=== PATIENT | female | born 1935 | race Caucasian/White ===

== ENCOUNTER 2016-07-08 09:58 | Observation (INO) | payer MEDICARE ==
--- NOTE | 2016-07-01 14:48 | HP ---
PREOPERATIVE HISTORY AND PHYSICAL: DATE OF ADMISSION: 07/08/16 This patient is scheduled for Same-Day Surgery admission by Dr. Estrada on 07/08/16. DATE OF PREOPERATIVE HISTORY AND PHYSICAL EXAMINATION: 07/01/16. CHIEF COMPLAINT: Gallstones. HISTORY OF PRESENT ILLNESS: The patient is an 81-year-old female referred to Dr. Estrada by Dr. Davies in April 2016 for evaluation of abdominal pain related to gallstones. She had been seen at the [facility] for "stomach problems." She reports that starting in February 2016, she had episodic epigastric pain radiating to the right upper quadrant and occasionally to the right shoulder. She reports no specific provoking factors. Sometimes, she had experienced postprandial symptoms, but reports that she has also eaten pepperoni pizza and wings without problem. Sometimes the pain has awakened her at night. She has taken Tylenol and Tums at times with relief. She denies any associated fever, chills, nausea, vomiting, diarrhea, jaundice, or tea-colored urine or los-colored stools. She eliminated dairy from her diet and decreased her carbs intake and noticed left abdominal pain and she also lost 5 pounds. She underwent abdominal ultrasound on 03/25/16, which revealed cholelithiasis, no cholecystitis, no gallbladder wall thickening, and the common bile duct measurement was within normal limits. Amylase was mildly elevated and lipase was normal. She had an upper GI by Dr. Miller at [facility] in 2014 reportedly normal. She was scheduled to have laparoscopic cholecystectomy in April 2016 , but delayed it because she wanted to get a sleep study and the sleep study is negative for sleep apnea. She returned to our office for reassessment by Dr. Estrada and wishes to proceed with laparoscopic cholecystectomy. Dr. Estrada discussed the nature of the surgical procedure, the rationale for the procedure , the relevant risks, benefits, and alternatives, and today I reviewed the typical Same-Day Surgery as well as the expected postoperative care and recovery. The patient has had a chance to ask questions and stated that she understands the information and is satisfied with the answers given to her questions. She will sign surgical consent on the day of surgery. PAST MEDICAL HISTORY: Hypertension, left renal cancer status post partial robotic left nephrectomy in 2009, osteoporosis with closed fracture of the left distal radius, back pain, heartburn, and impaired balance. PAST SURGICAL HISTORY: Cataract extraction, partial left robotic nephrectomy in 2009, and surgery for closed fracture of left distal radius. MEDICATIONS: 1. Amlodipine 2.5 mg 2 tablets p.o. daily in the evening. 2. Calcium and vitamin D supplement daily. 3. Vitamin D3 daily. 4. Multivitamin daily. 5. Aflibercept, which is an injection into her left eye due again in July 2016. 6. Premarin 0.625 mg 1 applicator intravaginally 2 times a week. 7. Meclizine 12.5 mg p.o. q.12 hours p.r.n. ALLERGIES: BACTRIM has caused heartburn. FAMILY HISTORY: Negative for anesthesia complications, bleeding tendencies, or clotting disorders. SOCIAL HISTORY: She lives alone, but her son lives on same property. She has never been a smoker. She denies the use of alcohol or other substances. REVIEW OF SYSTEMS: She denies any constitutional symptoms; she denies any chest pain, pressure, or palpitations; she is treated for hypertension; she denies any history of deep vein thrombosis or pulmonary embolism. She denies any respiratory symptoms. She denies any previous anesthesia complications. She denies any additional gastrointestinal symptoms other than those described in history of present illness. She denies any genitourinary complaints or conditions. She is status post left partial nephrectomy. She has osteoporosis and a history of a closed fracture of the left distal radius. She denies any bleeding tendencies and has never received a blood transfusion. She does have bouts of anxiety and depression. PHYSICAL EXAMINATION GENERAL SURVEY: The patient is an 81-year-old female, well developed, well nourished, in no acute distress. VITAL SIGNS: Height 63 inches, weight 130 pounds, blood pressure 120/82, pulse 78 and regular, respiratory rate 16, temperature 97.5 tympanic, and body mass index of 23. HEENT: Benign. Sclerae anicteric. NECK: Supple. No cervical lymphadenopathy. No thyromegaly. No other masses. BACK: No CVA tenderness. LUNGS: Breath sounds bilaterally clear and equal. HEART: Regular rate and rhythm. No murmurs or rubs appreciated. ABDOMEN: Active bowel sounds, soft, and nondistended, nontender throughout. No obvious masses or organomegaly or ventral hernias. Negative Flores sign. EXTREMITIES: Warm without edema or skin ulcerations. NEUROLOGIC: Alert and oriented x3. Steady gait. SKIN: Warm, dry, intact, and anicteric. IMPRESSION: Symptomatic cholelithiasis. PLAN/RECOMMENDATIONS: Same-Day Surgery admission to Dr. Estrada service on 07/08/16, for laparoscopic cholecystectomy. MEDARDO JEFFERY NP CC: Lazarus Estrada MD at [facility]; Arnie Davies MD* [id number]/[facility] #: [id number] [facility]
[~2016-07-08 09:58] MED LIST: Buffered Lidocaine 1% SYR 3ML* 3 ML/SYR SYRINGE INTRADERM ONE; Dexamethasone IV* 4 MG/ML 1 ML (4 MG) IV SLOW PU ONE; Famotidine IV* 10 MG/ML 2 ML (20 mg) IV ONE
[2016-07-08] MEDS ORDERED: Dexamethasone IV* 4 MG/ML 1 ML (4 MG) ONE (10:17)
[2016-07-08] MEDS ORDERED: Famotidine IV* 10 MG/ML 2 ML (20 mg) ONE (10:17)
[2016-07-08] MEDS ORDERED: ceFAZolin 2 GM PREMIX (*) 2 GM/50 ML BAG IVPB ONE (10:17)
[2016-07-08] MEDS ORDERED: Bupivacaine 0.5% W/EPI SDV* 30 ML VIAL ONE (11:14)
[2016-07-08] MEDS ORDERED: Propofol* 10 MG/ML 20 ML BTL IV PUSH ONE (11:15)
[2016-07-08] MEDS ORDERED: Rocuronium* 10 MG/ML VIAL ONE (11:15)
[2016-07-08] MEDS ORDERED: Lidocaine 2% PF * 5 ML VIAL ONE (11:15)
[2016-07-08] MEDS ORDERED: fentaNYL* 50 MCG/ML 2 ML VIAL (100 MCG VIAL) ONE ×2 (11:15→11:41)
[2016-07-08] MEDS ORDERED: Phenylephrine IV* 40 MCG/ML 10 ML SYRINGE ONE (11:46)
[2016-07-08] MEDS ORDERED: Ondansetron INJ* 2 MG/ML VIAL ONE (11:50)
[2016-07-08] MEDS ORDERED: EPHEDrine (Pressors)* 50 MG/ML VIAL ONE (11:53)
[2016-07-08] MEDS ORDERED: HYDROcodone/ACETAMIN 5-325 MG* 1 TAB PO PRN ×3 (11:57→12:28)
[2016-07-08] MEDS ORDERED: PROCHLORPERAZINE INJ 5 MG/ML 2 ML VIAL IV PRN (11:57)
[2016-07-08] MEDS ORDERED: fentaNYL* 50 MCG/ML 2 ML VIAL (100 MCG VIAL) IV PRN (11:57)
[2016-07-08] MEDS ORDERED: Neostigmine Methylsulfate* 2 MG/2 ML SYRINGE ONE (12:05)
[2016-07-08] MEDS ORDERED: Glycopyrrolate IV* 0.2 MG/ML 1 ML VIAL ONE (12:05)
[2016-07-08] MEDS ORDERED: Metoprolol Tartrate IV* 1 MG/ML 5 ML VIAL ONE (12:09)
[2016-07-08] MEDS ORDERED: PROCHLORPERAZINE INJ 5 MG/ML 2 ML VIAL ONE (15:18)
[2016-07-08] MEDS ORDERED: HYDROcodone/ACETAMIN 5-325 MG* 1 TAB ONE (17:26)
[2016-07-08] MEDS ORDERED: Acetaminophen TAB* 325 MG PO PRN ×2 (18:19→23:50)
[2016-07-08] MEDS ORDERED: Ibuprofen TAB* 400 MG PO PRN (18:19)
[2016-07-08] MEDS ORDERED: Ondansetron INJ* 2 MG/ML VIAL IV PRN (18:20)
[2016-07-08] MEDS ORDERED: amLODIPine TAB* 5 MG PO SCH (19:30)
[2016-07-08] MEDS: PRESERVISION PO SCH (20:29)
[2016-07-08] MEDS: JOINT SOOTHER PO SCH (20:29)
[2016-07-09 08:05] VITALS: BP 144/55
[2016-07-09] MEDS ORDERED: Cholecalciferol TAB* 400 UNIT PO SCH (09:00)
[2016-07-09] MEDS ORDERED: Cholecalciferol TAB* 1000 UNITS PO SCH (09:00)
[2016-07-09] MEDS ORDERED: Calcium Carbonate CHEW TAB* 500 MG (TUMS) PO SCH (09:00)
[2016-07-09] MEDS: JOINT SOOTHER PO SCH (09:41)
[2016-07-09] MEDS: PRESERVISION PO SCH (09:41)
--- NOTE | 2016-07-09 10:18 | PN ---
Progress Note - Progress Note SOAP: DISCHARGE NOTE: Subjective:minimal discomfort,tolerating low fat diet,voiding large,walking, wants to go home Objective:awake and alert;lungs:clear bilat;heart:RRR,no m/r/g;Abd:softly bloated;+bs;all incisions intact with steristrips,mild ecchymosis periumbilical; no drainage or erythema;ext:nontender,no edema [] Assessment:doing well POD#1 s/p lap cholecystectomy [] Plan:Discharge home today,instructions reviewed,office postop visit next week []
[2016-07-09] MEDS ORDERED: OPTH BOTH EYES SCH (18:00)
[2016-07-09] MEDS ORDERED: MURO BOTH EYES SCH (18:00)
--- NOTE | 2016-07-09 23:02 | OP ---
DATE OF OPERATION: 07/08/16 - ROOM #333 DATE OF : 33 SURGEON: Lazarus Estrada MD WIRE INSPECTOR: Dr. Velásquez. ANESTHESIOLOGIST: Dr. Esparza. ANESTHESIA: General endotracheal. PRE-OP DIAGNOSIS: Symptomatic cholelithiasis. POST-OP DIAGNOSIS: Symptomatic cholelithiasis. OPERATIVE PROCEDURE: Laparoscopic cholecystectomy. ESTIMATED BLOOD LOSS: Minimal. IV FLUIDS: Crystalloids. SPECIMEN: Gallbladder. DRAINS: None. COMPLICATIONS: None. COUNTS: The instrument, needle, and sponge counts were correct. DESCRIPTION OF PROCEDURE: The patient was brought to the operating room, placed on the table supine. Sequential compression devices were placed on both lower extremities. General anesthesia was administered. Her abdomen was prepped and draped in the usual sterile fashion and time-out was performed. Local anesthetic was infiltrated into the skin and soft tissue prior to making each incision. Entry through the abdomen was through a transumbilical incision , accommodating a 5-mm optical trocar. After accessing the peritoneal cavity, carbon dioxide was insufflated to a pressure of 15 mmHg. Under direct visualization, a 12- mm trocar was placed in the subxiphoid position and two 5- mm trocars were placed in the right upper quadrant. The gallbladder was identified. It appeared to have chronic changes consistent with chronic cholecystitis. The gallbladder fundus was grasped and retracted superiorly and the infundibulum retracted laterally and inferiorly. The peritoneum investing the gallbladder was incised with cautery and sharp scissors dissection and this was performed over the infundibulum both medially and laterally and dissection then proceeded to identify the infundibular cystic duct junction. In addition, the cystic artery was dissected out and after each structure was bluntly dissected out and critical view was obtained, the structures were doubly clipped and divided. Gallbladder was freed from its attachments to the liver using the hook electrocautery and after freeing the gallbladder, it was placed in an endoscopic retrieval bag and retrieved through the subxiphoid port site. There were numerous stones noted. The area of dissection was copiously lavaged until clear. Clips were noted to be intact and hemostasis was assured. The ports were removed under direct visualization, carbon dioxide was released. The subxiphoid port site was closed with 0 Polysorb in an interrupted fashion to approximate the muscle and fascia. The skin incisions were closed with 4-0 Monocryl in subcuticular fashion. Steri- Strips were applied. The patient tolerated the procedure well, was extubated, and transferred to recovery room in stable condition. CC: Dr. Arnie Davies* [id number]/[facility] #: [id number] MTDD
--- NOTE | 2016-07-10 04:42 | DS ---
DISCHARGE SUMMARY: DATE OF ADMISSION: 07/08/16 DATE OF DISCHARGE: 07/09/16 ATTENDING SURGEON: Lazarus Estrada MD HOSPITAL COURSE: Please refer to admission history and physical for admission details. The patient was taken to the operating room on 07/08/16 and underwent laparoscopic cholecystectomy. She has had an uneventful postoperative course and as of the morning of discharge, was eating a low fat diet, denied any nausea or vomiting, was up walking with assistance, voiding large amount of urine and had minimal postoperative discomfort well controlled. PHYSICAL EXAMINATION: Vital Signs: Temp 97.4, blood pressure 144/50, pulse 60 and regular, respiratory rate 18, O2 saturation on room air 96%. General: Well appearing, and in no acute distress, sitting up at the edge of the bed. Lungs: Breath sounds bilaterally clear and equal. No rales or wheezes. Heart: Regular rate and rhythm. No murmur, rub, or gallops. Abdomen: Active bowel sounds, softly bloated. Laparoscopic incision sites intact with Steri-Strips. No surrounding erythema or drainage, mild ecchymosis in the periumbilical region. Extremities: Warm, nontender, and without edema. IMPRESSION: Postop day 1, status post laparoscopic cholecystectomy, doing very well. PLAN: Discharge home today. Discharge instructions were reviewed. She will follow the prescribed low fat diet and she has a followup appointment in our office on 07/16/16. MEDARDO JEFFERY NP CC: Dr. E[facility] * [id number]/[facility] #: [id number] [facility]ALTHDonald
[2016-07-10] MEDS ORDERED: Conjugated Estrogens VAG CM* 42.5 gm TUBE VAGINAL SCH (19:30)
== END 2016-07-09 11:05 | disposition home or self-care (01) ==
LOC: OR 09:58 → SSU 17:53
PROVIDERS: ADMIT Surgery; ATTEND Surgery
PROC: 0FT44ZZ Resection of Gallbladder, Percutaneous Endoscopic Approach (ICD-10-PCS; principal; 2016-07-08 11:30)
DX: K80.10 Calculus of gallbladder with chronic cholecystitis without obstruction (principal); I10 Essential (primary) hypertension; Z79.899 Other long term (current) drug therapy
CPT/HCPCS: 88304; A9270-GY; G0378; J0690; J0780; J1100; J2405; J2704; J3010; J3490

== ENCOUNTER 2017-04-09 16:30 | Observation (INO) | payer MEDICARE ==
[2017-04-09] MEDS ORDERED: Aspirin Low Dose CHEW TAB* 81 MG PO ONE (17:00)
[2017-04-09 17:46] LABS: Hematocrit 39 % (35-47); Hemoglobin 12.9 g/dl (12.0-16.0); Mean Corpuscular HGB Conc 33 g/dl (31-36); Mean Corpuscular Hemoglobin 31 pg (27-31); Mean Corpuscular Volume 93 fL (80-97); Mean Platelet Volume 9 um3 (7.4-10.4); Red Blood Count 4.23 10^6/ul (4.0-5.4); Red Cell Distribution Width 13 % (10.5-15)
[2017-04-09 18:03] LABS: Albumin 3.8 g/dL (3.2-5.2); BUN/Creatinine Ratio 16.5 (8-20); Calcium 8.8 mg/dL (8.6-10.3); EGFR African American 76.1 (>60); EGFR Non-African American 59.2 (>60); Globulin 2.5 g/dL (2-4); Total Bilirubin 0.5 mg/dL (0.2-1.0); Total Protein 6.3 g/dL (6.4-8.9)
--- NOTE | 2017-04-09 18:03 | RAD ---
Indication: Feels tired and weak. Chest discomfort for a week. Cardiovascular history. Hypertension. Comparison: Abdomen CT of the same date Technique: Upright AP 1720 hours Report: Costochondral calcifications noted at the RIGHT lower lung zone without concern. Clear lungs and pleural spaces. Negative for pneumothorax. The heart, pulmonary vasculature, and mediastinal contours are unremarkable. Negative for free air beneath the diaphragm. IMPRESSION: No evidence for acute intrathoracic disease.
[2017-04-09 18:43] LABS: TSH (Thyroid Stimulating Horm) 1.33 mcIU/mL (0.34-5.60)
--- NOTE | 2017-04-09 20:53 | ED ---
Mercedes Krueger SooYoung, scribed for Andrade Williamson MD on 04/09/17 at 1658 . Complex/Multi-Sys Presentation - HPI Summary HPI Summary: An 81 y/o F presents to ED referred from Nursery with c/o CP first noticed last night at 0100, and still present this AM at 0630. Pt states last night, she woke up from sleep with "heart burn" and bilat arm pain. She took some TUMS and went back to sleep. Pt sleeps sitting up. When she woke up, her sx were still present. She is concerned she may be having heart issues. Associated sx: diaphoretic in hands and feet, fatigue. Denies SOB, dizziness. PMHx: HTN, renal CA. Cholecystectomy in June. Non-smoker, no ETOH. - History Of Current Complaint Chief Complaint: EDAbdPain Time Seen by Provider: 04/09/17 16:47 Hx Obtained From: Patient, Family/Case Reviewer - Sister Onset/Duration: Still Present Severity Currently: Moderate Severity Initially: Moderate Associated Signs And Symptoms: Positive: Chest Pain, Diaphoresis, Other - pos: bilat arm pain; fatigue. Negative: Dizziness, SOB - Allergies/Home Medications Allergies/Adverse Reactions: Allergies Allergy/AdvReac Type Severity Reaction Status Date / Time Sulfamethoxazole AdvReac Heartburn Verified 07/08/16 10:20 w/Trimethoprim [From Bactrim] Home Medications: Home Medications Meclizine TAB* [Antivert 12.5 TAB*] 1 tab PO BID PRN 04/09/17 [History Confirmed 04/09/17] Omeprazole [Prilosec] 20 mg PO DAILY 04/09/17 [History Confirmed 04/09/17] metroNIDAZOLE TAB* [Flagyl 250 mg TAB*] 250 mg PO TID 04/09/17 [History Confirmed 04/09/17] PMH/Surg Hx/FS Hx/Imm Hx Previously Healthy: No Endocrine/Hematology History: Denies: Hx Diabetes Cardiovascular History: Reports: Hx Hypertension - ON MEDICATION FOR Denies: Hx Pacemaker/ICD GI History: Reports: Hx Gastroesophageal Reflux Disease, Hx Ulcer - 2014- PEPTIC ULCER PIN History: Denies: Hx Renal Disease Musculoskeletal History: Reports: Hx Arthritis - HANDS, Other Musculoskeletal History - OSTEOPOROSIS IN BACK Sensory History: Reports: Hx Cataracts, Hx Contacts or Glasses - GLASSES, Hx Hearing Aid - BOTH EARS Opthamlomology History: Reports: Hx Cataracts, Hx Contacts or Glasses - GLASSES Psychiatric History: Reports: Hx Anxiety - IN 2016, Hx Depression - IN 2016- RELATED TO IN FAMILY Denies: Hx Panic Disorder - Cancer History Cancer Type, 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 LEFT ELBOW. TUBAL LIGATION. 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 CHOLECYSTECTOMY 07/11 Hx Anesthesia Reactions: No Infectious Disease History: No Infectious Disease History: Denies: History Other Infectious Disease, Traveled Outside the [place] in Last 30 Days - Family History Known Family History: Positive: Cardiac Disease, Hypertension Family History: Brother: CVA - Social History Occupation: Retired Lives: Alone Alcohol Use: None Hx Substance Use: No Substance Use Type: Reports: None Hx Tobacco Use: No Smoking Status (MU): Never Smoked Tobacco Review of Systems Positive: Fatigue, Skin Diaphoresis Positive: Chest Pain Negative: Shortness Of Breath Musculoskeletal: Other - pos: bilat arm pain Neurological: Other - neg: dizziness All Other Systems Reviewed And Are Negative: Yes Physical Exam Triage Information Reviewed: Yes Vital Signs On Initial Exam: Initial Vitals Temp Pulse Resp BP Pulse Ox 97.0 F 64 20 145/73 99 04/09/17 16:36 04/09/17 16:36 04/09/17 16:36 04/09/17 16:36 04/09/17 16:36 Appearance: Positive: Well-Appearing, No Pain Distress Skin: Positive: Skin Color Reflects Adequate Perfusion Head/Face: Positive: Normal Head/Face Inspection Eyes: Positive: EOMI ENT: Positive: Normal ENT inspection, Pharynx normal Neck: Positive: Nontender Respiratory/Lung Sounds: Positive: Clear to Auscultation, Breath Sounds Present Cardiovascular: Positive: RRR. Negative: Murmur Abdomen Description: Positive: Nontender Neurological: Positive: Sensory/Motor Intact, Alert, Oriented to Person Place, Time, CN Intact II-III Psychiatric: Positive: Normal Diagnostics - Vital Signs Vital Signs Temp Pulse Resp BP Pulse Ox 04/09/17 16:36 97.0 F 64 20 145/73 99 - Laboratory Result Diagrams: 04/09/17 17:39 04/09/17 17:39 Lab Statement: Any lab studies that have been ordered have been reviewed, and results considered in the medical decision making process. - Radiology CXR Xray Interpretation: No Acute Changes - IMPRESSION: No acute intrathoracic disease. ED physician has reviewed this radiology report and agrees. Radiology Interpretation Completed By: Radiologist - EKG 1706 Cardiac Rate: Bradycardia EKG Rhythm: Sinus Bradycardia - 58bpm ST Segment: Normal EKG Interpretation: nml MS, QRS, QT. no STEMI. Re-Evaluation - Re-Evaluation 1 Re-Evaluation Time: 19:15 Change: Improved Comment: Discussing results with pt. Complex Multi-Symp Course/Dx Course Of Treatment: An 81 y/o F presents to ED referred from Nursery with c/o CP first noticed last night at 0100, and still present this AM at 0630. Pt states last night, she woke up from sleep with "heart burn" and bilat arm pain. She took some TUMS and went back to sleep. Pt sleeps sitting up. When she woke up, her sx were still present. She is concerned she may be having heart issues. Associated sx: diaphoretic in hands and feet, fatigue. Denies SOB, dizziness. PMHx: HTN, renal CA. Cholecystectomy in June. Non-smoker, no ETOH. CXR shows no acute finding. EKG is sinus felisa at 58bpm, no STEMI. - Diagnoses Provider Diagnoses: Chest pain, Hypertension - Physician Notifications Discussed Care Of Patient With: Johanna Benjamin - hospitalist Time Discussed With Above Provider: 19:48 Instructed by Provider To: Admit As Inpatient Discharge - Discharge Plan Condition: Stable Disposition: ADMITTED TO [facility] Referrals: Arnie Davies MD [Medical Doctor] - The documentation as recorded by the Mercedes blunt SooYoung accurately reflects the service I personally performed and the decisions made by , Andrade Williamson MD.
[2017-04-09] MEDS ORDERED: Acetaminophen TAB* 325 MG PO PRN (21:08)
[2017-04-09] MEDS ORDERED: Ondansetron INJ* 2 MG/ML VIAL IV PRN (21:08)
[2017-04-09] MEDS ORDERED: Al Hydrox/Mg Hydrox/Simet LIQ* 30 ML UDC PO ONE (21:08)
[2017-04-09] MEDS ORDERED: Lidocaine 2% VISCOUS* 15 ML UDC PO ONE (21:08)
[2017-04-09] MEDS ORDERED: Meclizine TAB* 12.5 MG PO PRN (21:10)
[2017-04-09] MEDS ORDERED: amLODIPine TAB* 5 MG PO SCH (22:00)
[2017-04-09] MEDS: Heparin VIAL(*) 5000 UNITS/ML VIAL (FIVE THOUSAND) SUBCUT SCH (23:04)
--- NOTE | 2017-04-10 01:55 | HP ---
CC: Dr. Adelina Fonseca. * HISTORY AND PHYSICAL: DATE OF ADMISSION: 04/09/17 PRIMARY CARE PROVIDER: Dr. Adelina Fonseca. ATTENDING PHYSICIAN WHILE IN THE HOSPITAL: Dr. Johanna Benjamin * (report dictated by Winston Olson NP). CHIEF COMPLAINT: 1. Epigastric pain. 2. Chest burning. HISTORY OF PRESENT ILLNESS: Ms. Becker is an 81-year-old female patient. She has a history of hypertension and renal cancer, status post nephrectomy; osteoporosis; GERD; and history of anxiety, who for several years has been having issues with abdominal discomfort. She has been having lower abdominal bloating, no pain. She has been following with Dr. Miller at [facility] for this. She has had endoscopies and workup for this, now recently following with Dr. Fonseca. She says that the characteristics of the pain changed last night and this was concerning to her. She noticed that she fell asleep on the couch, woke up at 1 in the morning, was having some epigastric burning and discomfort which she has had in the past. She took 3 Tums, was able to go back to bed. She walked around. The discomfort subsided to the point where she could sleep. She went to bed. She unfortunately woke up at 5:30 again having the similar discomfort. She was concerned because it was not going away. It was going into her arms. She was having some stabbing pain in her chest which was new and still having the burning discomfort which was coming and going throughout the day with no correlation with meals. She did try taking her omeprazole and GI med, but this did not help her. She called Dr. Miller's office and she was referred to the ER. She denies having any pain with exertion. No pressure in her chest. No shortness of breath. No recent fevers, chills, or cough. No recent trips or travel. No leg pain or leg discomfort. She does state that she fell asleep upright last night. She said that she fell asleep at least an hour to 2 hours after eating her last meal and she has been sticking to her gluten free and lactose free diet. According to the patient, she does state that she recently was started on some medication for anxiety, which did not agree with her and it was Lexapro and she did stop taking this under the care of Dr. Fonseca. She was concerned though because of the chest discomfort, she came in and was evaluated by the ER physician here and there was a concern for the chest pain and we were asked to evaluate for admission. PAST MEDICAL HISTORY: Significant for: 1. Hypertension. 2. Renal cell carcinoma. 3. Osteoporosis. 4. GERD. 5. Anxiety. PAST SURGICAL HISTORY: 1. She has had a left nephrectomy. 2. Laparoscopic cholecystectomy. MEDICATIONS: Home meds according to the list that she provided to us includes: 1. Omeprazole 20 mg daily. 2. Antivert 1 tablet p.o. b.i.d. as needed. 3. Flagyl 250 mg p.o. t.i.d. for 3 days. She finished this yesterday. 4. Premarin vaginal cream 1 application topically as instructed. 5. Calcium with vitamin D 1 tablet daily. 6. Aflibercept 1 injection left eye every 60 days. 7. Tylenol 2 tablets every 6 hours as needed. 8. Vitamin D3 1000 units p.o. daily. 9. Sodium chloride 5% ophthalmic 1 application to both eyes q.p.m. 10. Multivitamin 1 tablet p.o. b.i.d. 11. Amlodipine 5 mg p.o. at bedtime. ALLERGIES TO MEDICATIONS: Include BACTRIM. FAMILY HISTORY: Mother had a history of AL at age 81. Father, she thinks, had a history of coronary artery disease as well. SOCIAL HISTORY: She does not smoke, does not drink. Surrogate decision maker is her sister. REVIEW OF SYSTEMS: There is no documented fevers. She denied having any significant weight change. There was no double vision. No ear discharge. No rhinorrhea, no sore throat, no thyroid enlargement. She denies chest pain currently, but did have some from her HPI. There was no dyspnea or exertion, no orthopnea, no nocturnal dyspnea. There was no abdominal pain. She did admit to having bloating. She did admit to having epigastric discomfort and burning. No nausea or vomiting. No dysuria, no frequency, no seizure, no loss of consciousness, no pruritus, and no skin ulcerations. Review of 14 systems completed, all others negative. PHYSICAL EXAMINATION GENERAL: Ms. Becker is an 81-year-old female patient. She is sitting in the ER stretcher. She does not appear to be in any acute distress. VITAL SIGNS: Blood pressure 150/95 with a pulse of 65, respirations 18, O2 sat 96%, temperature 97.0. HEENT: Head atraumatic and normocephalic. Eyes: EOMs are intact. Sclerae anicteric and not pale. NECK: Supple. Throat, oral mucosa appears to be moist, no oropharyngeal erythema. LUNGS: Clear to auscultation bilaterally. No wheezes, rales, or rhonchi. HEART: Sounds S1 and S2. Regular, rate, and rhythm. No murmurs, rubs, or gallops. ABDOMEN: Soft, flat, and nontender. Bowel sounds are present. EXTREMITIES: Pulses were 2+ throughout. Moving all 4 extremities with 5/5 strength. No peripheral edema. NEUROLOGIC: The patient is awake, alert, and oriented x3. Tongue midline, electrical prospecting operator are equal. No gross focal deficits. SKIN: Grossly intact. DIAGNOSTIC STUDIES/LAB DATA: Reveals a WBC of 5.0, RBC of 4.23, hemoglobin 12.9, hematocrit 39, platelet count of 189. The D-dimer was less than 200. Sodium 137, potassium 4, chloride 107, bicarb 25, BUN 15, creatinine 0.91, glucose 89, lactic 0.6, calcium 8.8. Total bili 0.5, AST 29, ALT 17, alk phos 66. Troponin 0.0, repeat troponin was 0. BNP is 73. TSH normal. Albumin 3.8. She did have an EKG obtained today. Unfortunately, I do not have a previous for comparison, but it did reveal normal sinus rhythm, no ST elevations or T- wave inversions with a rate of 58. Chest x-ray obtained today. Impression: No evidence for acute intrathoracic disease. Old medical records reviewed. ASSESSMENT AND PLAN: Ms. Becker is an 81-year-old female patient coming into the ER today with complaints of atypical chest pain. There was concern this could be acute coronary syndrome. We were asked to evaluate for admission. She will be admitted under observation status for: 1. Chest pain. This is probably GI related. She certainly does have a history of GERD and has had several issues with GI discomfort in the past. I am going to go ahead and give her GI cocktail. She does have a history of hypertension. She does have a family history, although in her mom having a heart attack at 81. No early heart disease and she has never been a smoker. I do think that I will get 1 more troponin. We will do a stress test to make sure this is not cardiac related, though I suspect less likely. We will place her on telemetry and will follow her closely. If the stress test is negative, she could be discharged with follow up with Dr. Miller. 2. Hypertension. Her blood pressures here having been well controlled, it certainly may be a contributing factor. They have been in the 170s to 190s at times. She did not take her medications today, so I am going to go ahead and give her amlodipine. We will follow. 3. Osteoporosis. Continue meds as prescribed. 4. Renal cell cancer. Follow up with primary. 5. Gastroesophageal reflux disease. Continue PPI therapy. 6. Anxiety. Continue supportive care. 7. DVT prophylaxis: She is a high risk, placed on heparin subcu. 8. Code status: Full code. 9. Fluids, electrolytes, and nutrition: She can have a heart-healthy diet. TIME SPENT: On this admission 60 minutes, greater than half the time was spent [id number] with the patient obtaining my history and physical, other half the time was spent going over the plan of care with the patient, implementing the plan of care. I discussed the plan of care with my attending Dr. Benjamin, she is in agreement. WINSTON OLSON NP [id number]/CPS #: [id number] MTDDonald
[2017-04-10] MEDS: Heparin VIAL(*) 5000 UNITS/ML VIAL (FIVE THOUSAND) SUBCUT SCH ×2 (05:28→13:49)
[2017-04-10 06:10] LABS: HDL Cholesterol 57.2 mg/dL
[2017-04-10] MEDS ORDERED: Omeprazole CAP* 20 MG PO SCH (07:30)
[2017-04-10 08:10] VITALS: BP 163/65
[2017-04-10] MEDS ORDERED: Aspirin Low Dose CHEW TAB* 81 MG PO SCH (09:00)
[2017-04-10] MEDS ORDERED: Regadenoson* 0.4 MG/5 ML SYRINGE ONE (10:19)
[2017-04-10] MEDS ORDERED: Aminophylline IV* 25 MG/ML 10 ML VIAL ONE (10:19)
[2017-04-10] MEDS ORDERED: Acetaminophen TAB* 325 MG ONE (10:40)
[2017-04-10] MEDS ORDERED: Ondansetron INJ* 2 MG/ML VIAL ONE (10:40)
--- NOTE | 2017-04-10 13:10 | RAD ---
Indication: Chest pain. Myocardial perfusion scan was performed utilizing 1 day protocol. Rest myocardial perfusion was performed after intravenous injection of 10.8 mCi of technetium 99 and tetrofosmin. Pharmacological stress was given and 25.9 mCi technetium 99m tetrofosmin was injected. There is homogeneous distribution of the radiotracer throughout the left ventricle. There is no evidence of any fixed or reversible perfusion defect. The ejection fraction at stress is 93%. Evaluation of wall motion demonstrates no focal wall motion abnormality. IMPRESSION: No evidence of fixed or reversible perfusion defect. Ejection fraction is 93%. ASSESSMENT: Low risk Based on imaging criteria from ACC/AHA 2002 Guideline Update for the Management of Patients With Chronic Stable Angina Table 23. Noninvasive Risk Stratification. Reference.
--- NOTE | 2017-04-11 05:28 | DS ---
CC: Dr. Adelina Fonseca; Dr. Miller at [facility], [place] DISCHARGE SUMMARY: DATE OF ADMISSION: DATE OF DISCHARGE: 04/10/17 HISTORY: This 81-year-old woman presented with epigastric pain, some burning in her chest. I believ e she called her general accounting manager office and was referred to the emergency room. The patient was admitted to the telemetry unit. She said since she had eaten very little since she g ot here, her symptoms all went away. Her troponin was measured 3 times, all of which were within nor mal limits. Her EKG showed normal sinus rhythm with no significant ST-T wave abnormalities. No Q-wa ves. Nuclear stress test showed no fixed or reversible perfusion defects. The ejection fraction was estim ated as 93%. The patient's clinical picture is most compatible with her known GERD. She has an appointment to doroteo lee with her general accounting manager, Dr. Miller, in early April. I note she has had endoscopy for this . She was advised to call Dr. Adelina Fonseca to have an appointment within a week as followup. I note the patient is a rather anxious woman, but at least will be reassured by explanation of her sy mptoms. DISCHARGE DIAGNOSES: 1. Atypical chest pain. 2. Gastroesophageal reflux disease. 3. Hypertension. 4. Osteoporosis. 5. Anxiety. 6. History of renal cell carcinoma with left nephrectomy. DISCHARGE MEDICATIONS: 1. Amlodipine 5 mg at h.s. 2. Ophthalmic ointment both eyes h.s. 3. PreserVision 1 tab b.i.d. 4. Conjugated estrogen cream applied vaginally as prescribed. 5. Calcium with vitamin D 1 tablet daily. 6. Aflibercept injection left eye every 60 days. 7. Acetaminophen 2 tabs every 6 hours p.r.n. 8. Vitamin D3 a 1000 units daily. 9. Metronidazole 250 mg as prescribed. 10. Omeprazole 20 mg daily. 11. Meclizine 12.5 mg b.i.d. p.r.n. [id number]/[facility] #: [id number]
== END 2017-04-10 15:00 | disposition home or self-care (01) ==
LOC: ED 16:30 → MEDTELE 21:06
PROVIDERS: ADMIT Hospitalist; ATTEND Internal Medicine
DX: R07.89 Other chest pain (principal); K21.9 Gastro-esophageal reflux disease without esophagitis; I10 Essential (primary) hypertension; F41.9 Anxiety disorder, unspecified; R00.1 Bradycardia, unspecified; Z85.528 Personal history of other malignant neoplasm of kidney; M81.0 Age-related osteoporosis without current pathological fracture; Z79.899 Other long term (current) drug therapy
CPT/HCPCS: 36415; 71010; 78452; 80053; 80061; 83036; 83605; 83690; 83880; 84443; 84484; 85025; 85379; 85610; 85730; 93005; 93017; 99283; A9270-GY; A9502; G0378; J0280; J1644; J2405; J2785

== ENCOUNTER 2018-03-04 22:18 | Emergency (ER) | payer MEDICARE ==
--- OUTSIDE RECORDS SUMMARY | 2018-03-04 23:15 | XMS REPORT ---
:1935 External Reference #:[id number] Author Organization [facility] Address [address] [place] [address] Phone [phone] Care Team Providers Name Role Phone Adelina Fonseca M.D. Care Team Information Manager Performance Unavailable Adelina Fonseca M.D. Primary Care Physician Unavailable Payers Type Date Identification Numbers Payment Provider Subscriber Commercial Effective: Policy Number: Medicare Blue Ppo Hannah Carrillo 2016 [id number] Group Number: [id number] [address] [id number] PayID: [id number] [place] [address] Problems Date Description Provider Status Onset: 04/27/2017 History of malignant neoplasm of kidney Adelina Fonseca M.D. Active Onset: 04/27/2017 Essential hypertension Adelina Fonseca M.D. Active Onset: 04/27/2017 Generalized anxiety disorder Adelina Fonseca M.D. Active Onset: 04/27/2017 Gastroesophageal reflux disease Adelina Fonseca M.D. 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 0000 s bid as Zion needed for MD patty dizziness Premarin / Active Cream 0.625mg/GM apply 0.5 Unknown 0000 g topically to introitus daily x 2 weeks, then two times weekly ongoing Preservision / Active Capsules 1 cap by Unknown Areds 0000 mouth twice daily Sodium Chloride / Active Solution 5% Unknown 0000 Amlodipine / Active Tablets 2.5mg 1 by mouth Unknown Besylate 0000 every day Calcium 600 / Active Tablets 600mg 1 by mouth Unknown 0000 every day Aflibercept / Active 2mg Place Unknown 0000 Within The Eye Allergy / Active Tablets tab as Unknown 0000 needed Ranitidine HCL 12/08/ Hx Tablets 150mg 60tab 1 tab by K21.9 Poonam 2017 - s mouth Manuela 02/15/ twice a Giron, 2017 day BARREL LEVELER Nitrofurantoin 09/04/ Hx Capsules 100mg 10cap 1 by mouth N39.0 Poonam Monohyd Macro 2017 - s twice a Manuela 09/23/ day x 5 Giron, 2017 days BARREL LEVELER Vitamin D-3 03/23/ Hx Capsules 1000Unit 180ca 1 by mouth Adelina 2017 - ps every day Bellmore, 10/29/ M.D. 2017 Escitalopram 03/23/ Hx Tablets 5mg 30tab take one F41.1 Adelina Oxalate 2016 - tablet by Bellmore, 04/27/ mouth at M.D. 2016 bedtime Omeprazole / Hx Capsules 20mg 1 by mouth Unknown 0000 - DR every day 2017 Vital Signs Date Vital Result Comment 02/15/2018 BP Systolic 178 mmHg BP Diastolic 90 mmHg Heart Rate 70 /min Body Temperature 97.2 F Respiratory Rate 22 /min Weight 135.50 lb 12/08/2017 BP Systolic 142 mmHg BP Diastolic 82 mmHg Heart Rate 60 /min Body Temperature 98.3 F Height 62 inches 5'2" Weight 135.00 lb BMI (Body Mass Index) 24.7 kg/m2 10/29/2017 BP Systolic 138 mmHg BP Diastolic 78 mmHg Heart Rate 74 /min Body Temperature 97.8 F Respiratory Rate 16 /min Height 62 inches 5'2" Weight 138.00 lb BMI (Body Mass Index) 25.2 kg/m2 10/17/2017 BP Systolic 110 mmHg BP Diastolic 62 mmHg Heart Rate 76 /min Body Temperature 97.9 F Respiratory Rate 16 /min Height 62 inches 5'2" Weight 140.38 lb BMI (Body Mass Index) 25.7 kg/m2 09/30/2017 BP Systolic 168 mmHg BP Diastolic 80 mmHg Heart Rate 72 /min Body Temperature 97.9 F Respiratory Rate 16 /min Height 62 inches 5'2" Weight 140.00 lb BMI (Body Mass Index) 25.6 kg/m2 09/04/2017 BP Systolic 138 mmHg BP Diastolic 90 mmHg Heart Rate 76 /min Body Temperature 98.0 F Respiratory Rate 17 /min Height 62 inches 5'2" Weight 139.38 lb BMI (Body Mass Index) 25.5 kg/m2 04/27/2017 BP Systolic 128 mmHg BP Diastolic 70 mmHg Heart Rate 78 /min Body Temperature 98.1 F Height 62 inches 5'2" Weight 135.50 lb BMI (Body Mass Index) 24.8 kg/m2 03/27/2017 BP Systolic 142 mmHg BP Diastolic 84 mmHg Heart Rate 72 /min Body Temperature 97.3 F Height 62 inches 5'2" Weight 139.12 lb BMI (Body Mass Index) 25.4 kg/m2 03/23/2017 BP Systolic 120 mmHg BP Diastolic 80 mmHg Heart Rate 64 /min Body Temperature 97.9 F Respiratory Rate 18 /min Height 62 inches 5'2" Weight 139.00 lb BMI (Body Mass Index) 25.4 kg/m2 Results Test Date Test Result H/L Range Note Laboratory test finding 02/15/2018 TSH <pending> 0.5-5.0 Ua - Micro (Fma) 09/16/2017 Appearance clear Color yellow Glucose, Urine (Fma/CMC/CTX) neg Bilirubin neg Ketones neg SP Grav 1.010 Blood neg PH 5.5 Protein neg Urobil 0.2 Nitrite neg Leukocytes (Fma/CMC/Centrex) trace Hyaline - /Lpf Granular - /Lpf WBC (Fma,Centrex) 1-2 RBC - Mucus - /Lpf Epith rare /Lpf Bacteria rare /Hpf Amorphous - /Lpf Crystals, Fluid (Fma/CMC/CTX) - Z#Comments - Urine Culture And Sensitivities 09/16/2017 Urine Culture SEE RESULT BELOW 1 Urine Culture And Sensitivities 09/04/2017 Urine Culture SEE RESULT BELOW 2 Ua - Micro (Fma) 09/04/2017 Appearance clear Color yellow Glucose, Urine (Fma/CMC/CTX) neg Bilirubin neg Ketones neg SP Grav 1.015 Blood neg PH 5.5 Protein neg Urobil 0.2 Nitrite neg Leukocytes (Fma/CMC/Centrex) mod Hyaline - /Lpf Granular - /Lpf WBC (Fma,Centrex) 20-25 RBC 3-5 Mucus - /Lpf Epith rare /Lpf Bacteria 2+ /Hpf Amorphous - /Lpf Crystals, Fluid (Fma/CMC/CTX) - Z#Comments - Laboratory test finding 04/09/2017 Troponin I 0.00 ng/mL <0.04 1 SEE RESULT BELOW Name: HANNAH CARRILLO : [address]: Poonam Giron NP Acct: [id number] Unit: [id number] AGE: 82 Location: [facility] Re09/16/17 SEX: F Status: REG REF SPEC: [id number] ALCIDES: 09/16/17-[address] [facility] DR: Poonam Giron NP REQ: [id number] RECD: 09/16/17 STATUS: COMP _ SOURCE: URINE SPDESC: ORDERED: Urine Culture COMMENTS: [id number] 1urine bernard top tube Procedure Result Reported Site Urine Culture Final 09/18/17- 09 ML No Growth (<1,000 CFU/mL) * ML - Main Lab . END OF REPORT DEPARTMENT OF PATHOLOGY, [address] [place] [address] Joni Joshi M.D. Director [facility] # [id number] 2 SEE RESULT BELOW Name: HANNAH CARRILLO : [address]: Poonam Giron NP Acct: [id number] Unit: [id number] AGE: 82 Location: [facility] Re09/04/17 SEX: F Status: REG REF SPEC: [id number] ALCIDES: 09/04/17-[address] [facility] [address]: Poonam Giron NP REQ: [id number] RECD: 09/04/17 STATUS: COMP _ SOURCE: URINE SPDESC: ORDERED: Urine Culture COMMENTS: 1urine vacutainer [id number] Urine Source: Random Procedure Result Reported Site Urine Culture Final 09/06/17- 0815 ML No growth of clinically significant organisms * ML - Main Lab . END OF REPORT DEPARTMENT OF PATHOLOGY, [address] [place] [address] Joni Joshi M.D. Director [facility] # [id number] Procedures Date CPT Code Description Status 01/13/2018 Colonoscopy Completed 12/08/2017 07150 Electrocardiogram Complete Completed Encounters Type Date Location Provider CPT E/M Dx Office Visit 12/08/2017 10:00a [facility] Adelina Fonseca M.D. 99076 K21.9 M54.9 I10 Office Visit 10/29/2017 10:10a [facility] Office Adelina Fonseca M.D. 67736 M54.5 H91.90 Z85.520 K21.9 Office Visit 10/17/2017 9:30a [place] [address] M54.9 Z85.520 Office Visit 09/30/2017 7:40p [place] [address] Z71.1 Office Visit 09/04/2017 1:30p [place] [address] N39.0 Office Visit 04/27/2017 11:40a [facility] Office Adelina Fonseca M.D. 12456 K21.9 F41.1 I10 Z85.528 Office Visit 03/27/2017 4:30p [place] [address] R19.5 R10.13 Office Visit 03/23/2017 6:50p Main Office Adelina Fonseca M.D. 44583 F41.1 Plan of Care Future Appointment(s):02/22/2018 1:30 pm - Adelina Fonseca M.D. at [facility] Msgjyl9803/15/2018 3:50 pm - Adelina Fonseca M.D. at [facility] Dhaagc0702/15/2018 - Meera Camacho, Francanp-CI10 Essential (primary) [id number] Generalized anxiety disorderAllComments:~B_~U_Medication Management~b_~u_ Patient Understands medications she's taking? Yes No Are there Barriers to Adherence? Yes No Has the patient been asked about herbal supplements and therapies, and OTC meds? Yes No ~B_~U_Care Plan~b_~u_1. Patient has been queried about patient's goals/preferences and functional/ lifestyle goals at relevant visits. If relevant, describe: na2. Treatment goals as explained to the patient: abovemoniter bp 3. Are there barriers to meeting treatment goals? Yes No If Yes, please describe:anxiety 4. Self-Management goals as described to the patient: Yes No home moniter your bp over the next week , perhaps about 3-4 readings, return for recheck with your cuffwe may need to go back to 5mg of amloidipine a day has cpe next monthf/u as noted and pending labs
[2018-03-05] MEDS ORDERED: cloNIDine TAB* 0.1 MG PO ONE (00:11)
--- NOTE | 2018-03-05 00:25 | ED ---
Hypertension - HPI Summary HPI Summary: This patient is a 82 year old F presenting to [facility] with a chief complaint of high blood pressure since 2 weeks ago. The patient notes that her blood pressure became even more elevated tonight so she decided to come to the ED. The patient rates the pain 3/10 in severity. Symptoms aggravated by nothing. Symptoms alleviated by nothing. Patient reports temporal MANCILLA since this afternoon which she notes is uncommon for her. Patient also notes general malaise. Patient denies chest pain or difficulty breathing. Patient takes amlodipine and she took x2 at 23:30. - History of Current Complaint Chief Complaint: EDGeneral Stated Complaint: ELEV BP Time Seen by Provider: 03/05/18 00:01 Hx Obtained From: Patient Onset/Duration: Started Weeks Ago - 2 weeks, Atraumatic, Still Present, Worse Since - 1 day ago Timing: Constant Aggravating Factor(s): Nothing Alleviating Factor(s): Nothing Associated Signs & Symptoms: Headaches Current Medications: Other - amlodipine - Allergies/Home Medications Allergies/Adverse Reactions: Allergies Allergy/AdvReac Type Severity Reaction Status Date / Time MS Sulfamethoxazole AdvReac Heartburn Verified 07/08/16 10:20 w/Trimethoprim [From Bactrim] PMH/Surg Hx/FS Hx/Imm Hx Endocrine/Hematology History: Denies: Hx Diabetes Cardiovascular History: Reports: Hx Hypertension - Medication Denies: Hx Pacemaker/ICD GI History: Reports: Hx Gastroesophageal Reflux Disease, Hx Ulcer - 2013- PEPTIC ULCER PIN History: Denies: Hx Renal Disease Musculoskeletal History: Reports: Hx Arthritis - HANDS, Other Musculoskeletal History - OSTEOPOROSIS IN BACK Sensory History: Reports: Hx Cataracts, Hx Contacts or Glasses, Hx Hearing Aid Opthamlomology History: Reports: Hx Cataracts, Hx Contacts or Glasses Psychiatric History: Reports: Hx Anxiety - IN 2015, Hx Depression - IN 2015- RELATED TO IN FAMILY Denies: Hx Panic Disorder - Cancer History Cancer Type, 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 LEFT ELBOW. TUBAL LIGATION. 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 CHOLECYSTECTOMY 07/11 Hx Anesthesia Reactions: No Infectious Disease History: No Infectious Disease History: Denies: History Other Infectious Disease, Traveled Outside the [place] in Last 30 Days - Family History Known Family History: Positive: Cardiac Disease, Hypertension Family History: Brother: CVA - Social History Alcohol Use: None Hx Substance Use: No Substance Use Type: Reports: None Hx Tobacco Use: No Smoking Status (MU): Never Smoked Tobacco Review of Systems Positive: Other - malaise. Negative: Fever Positive: Other - elevated BP. Negative: Chest Pain Negative: Shortness Of Breath Negative: Vomiting Positive: Headache All Other Systems Reviewed And Are Negative: Yes Physical Exam - Summary Physical Exam Summary: VITAL SIGNS: Reviewed. GENERAL: Patient is a well-developed and nourished FEMALE who is lying comfortable in the stretcher. Patient is not in any acute respiratory distress. HEAD AND FACE: No signs of trauma. No ecchymosis, hematomas or skull depressions. No sinus tenderness. EYES: PERRLA, EOMI x 2, No injected conjunctiva, no nystagmus. EARS: Hearing grossly intact. Ear canals and tympanic membranes are within normal limits. MOUTH: Oropharynx within normal limits. NECK: Supple, trachea is midline, no adenopathy, no JVD, no carotid bruit, no c- spine tenderness, neck with full ROM. CHEST: Symmetric, no tenderness at palpation LUNGS: Clear to auscultation bilaterally. No wheezing or crackles. CVS: Regular rate and rhythm, S1 and S2 present, no murmurs or gallops appreciated. ABDOMEN: Soft, non-tender. No signs of distention. No rebound no guarding, and no masses palpated. Bowel sounds are normal. EXTREMITIES: FROM in all major joints, no edema, no cyanosis or clubbing. NEURO: Alert and oriented x 3. No acute neurological deficits. Speech is normal and follows commands. SKIN: Dry and warm Triage Information Reviewed: Yes Vital Signs On Initial Exam: Initial Vitals Temp Pulse Resp BP Pulse Ox 97.4 F 80 15 172/75 98 03/04/18 22:45 03/04/18 22:45 03/04/18 22:45 03/04/18 22:45 03/04/18 22:45 Vital Signs Reviewed: Yes Diagnostics - Vital Signs Vital Signs Temp Pulse Resp BP Pulse Ox 03/05/18 00:09 64 16 215/93 97 03/05/18 00:00 58 14 99 03/04/18 23:50 61 15 218/84 98 03/04/18 23:49 59 13 98 03/04/18 22:45 97.4 F 80 15 172/75 98 - Laboratory Lab Statement: Any lab studies that have been ordered have been reviewed, and results considered in the medical decision making process. Hypertension Course/Dx - Course Course Of Treatment: This patient is a 82 year old F presenting to [facility] with a chief complaint of high blood pressure since 2 weeks ago and temporal MANCILLA since this afternoon . In the ED course the patient was given Catapres, Xanax, and amlodipine. BP improved. Patient will be discharged with follow up from PCP. The patient is agreeable with this plan. - Diagnoses Provider Diagnoses: Hypertension Discharge - Sign-Out/Discharge Documenting (check all that apply): Patient Departure - discharge home - Discharge Plan Condition: Stable Disposition: HOME Patient Education Materials: Hypertension (ED) Referrals: Adelina Fonseca MD [Primary Care Provider] - 1 Day Additional Instructions: Increase dose of amlodipine from 5 to 10 mg. Follow up with your primary care physician in 1-2 days. Return to the emergency department with any new or worsening symptoms. - Attestation Statements Document Initiated by Scribe: Yes Documenting Scribe: Valerie Kaufman Provider For Whom Scribe is Documenting (Include Credential): Cornell Fleming MD Scribe Attestation: Valerie Krueger, scribed for Cornell Fleming MD on 03/05/18 at 0212.
[2018-03-05] MEDS ORDERED: amLODIPine TAB* 5 MG PO ONE (01:11)
[2018-03-05] MEDS ORDERED: ALPRAZolam TAB* 0.25 MG PO ONE (01:12)
[2018-03-05 02:45] VITALS: BP 147/81
== END 2018-03-05 02:46 | disposition home or self-care (01) ==
LOC: ED 22:18
DX: I10 Essential (primary) hypertension (principal); R53.81 Other malaise; R51 Headache; Z88.2 Allergy status to sulfonamides
CPT/HCPCS: 99283; A9270-GY

== ENCOUNTER 2018-04-27 13:58 | Observation (INO) | payer MEDICARE ==
--- NOTE | 2018-04-27 15:04 | ED ---
HPI Cardiac - HPI Summary HPI Summary: Patient is a 82 y/o F presenting to ED with generalized malaise, dizziness, episodes of near syncope. She went to see PCP this morning. An EKG was taken and was noted to be different from previous one, patient was recommended to come to ED. She notes that she was here at [facility] in February for since Sx. Patient was discharged to home with an increase in her amlodipine. Since discharge, patient states that she has been experiencing more and more frequent episodes of Sx. She denies N/V, rashes, joint pain, fever, chills, urinary Sx, dysuria, blood in stool, chest pain. Patient reports occasional headaches. No PMHx of diabetes, respiratory issues, cardiac issues reported. Patient has hearing aids. On triage, pain is denied. Nothing is noted to aggravate/ alleviate Sx. Home medications and allergies are reviewed. - History of Current Complaint Chief Complaint: EDGeneral Stated Complaint: SOB/WEAKNESS/LETHARGIC/CHANGE IN EKG Time Seen by Provider: 04/27/18 15:01 Hx Obtained From: Patient Onset/Duration: Started Weeks Ago - Sx since february, Still Present, Worse Since Timing: Intermittent, Lasting Weeks - Sx since february Current Severity: None - pain denied on triage Pain Intensity: 0 Pain Scale Used: 0-10 Numeric - 0/10 Chest Pain Radiates: No Character: Other: - weakness, general malaise Aggravating Factor(s): Nothing Alleviating Factor(s): Nothing Associated Signs and Symptoms: Positive: Headaches, Dizziness, Syncope - near, Other: - POSITIVE - GENERAL MALAISE; NEGATIVE - RASHES, JOINT PAIN, URINARY SX, DYSURIA, BLOOD IN STOOL. Negative: Chest Pain, Fever, Chills - Additional Pertinent History Primary Care Physician: [id number] - Allergy/Home Medications Allergies/Adverse Reactions: Allergies Allergy/AdvReac Type Severity Reaction Status Date / Time sulfamethoxazole AdvReac Heartburn Verified 04/27/18 15:16 [From Bactrim] trimethoprim [From Bactrim] AdvReac Heartburn Verified 04/27/18 15:16 Home Medications: Home Medications Calcium Carbonate [Calcium] 600 mg PO DAILY 04/27/18 [History Confirmed 04/27/18 ] Cetirizine HCl [Allergy Relief] 10 mg PO DAILY PRN 04/27/18 [History Confirmed 04/27/18] Conjugated Estrogens VAG CM* [Premarin VAG CREAM*] 0.5 applic VAGINAL .TWICE WEEKLY 04/27/18 [History Confirmed 04/27/18] Sodium Chloride 5% OPTH.BERNY* [Lupe 128 Opth 5% OPTH.SOLl*] 1 drop BOTH EYES DAILY 04/27/18 [History Confirmed 04/27/18] Vit A/Vit C/Vit E/Zinc/Copper [Preservision Areds Softgel] 1 cap PO BID [History Confirmed 04/27/18] amLODIPine TAB* [Norvasc 5 mg TAB*] 10 mg PO DAILY 04/27/18 [History Confirmed 04/27/18] hydrOXYzine HCL TAB* [Atarax 10 MG TAB*] 10 - 20 mg PO QPM PRN 04/27/18 [ History Confirmed 04/27/18] PMH/Surg Hx/FS Hx/Imm Hx Endocrine/Hematology History: Denies: Hx Diabetes Cardiovascular History: Reports: Hx Hypertension - Medication Denies: Hx Pacemaker/ICD GI History: Reports: Hx Gastroesophageal Reflux Disease, Hx Ulcer - 2013- [facility] ULCER PIN History: Denies: Hx Renal Disease Musculoskeletal History: Reports: Hx Arthritis - HANDS, Other Musculoskeletal History - OSTEOPOROSIS IN BACK Sensory History: Reports: Hx Cataracts, Hx Contacts or Glasses, Hx Hearing Aid Opthamlomology History: Reports: Hx Cataracts, Hx Contacts or Glasses Psychiatric History: Reports: Hx Anxiety - IN 2015, Hx Depression - IN 2015- RELATED TO IN FAMILY Denies: Hx Panic Disorder - Cancer History Cancer Type, Location and Year: RENAL - REMOVED [facility]- 2009 Hx Chemotherapy: No Hx Radiation Therapy: No - Surgical History Surgery Procedure, Year, and Place: LEFT ROTATOR CUFF. LEFT ELBOW. TUBAL LIGATION. 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 CHOLECYSTECTOMY 07/11 Hx Anesthesia Reactions: No Infectious Disease History: No Infectious Disease History: Denies: History Other Infectious Disease, Traveled Outside the [place] in Last 30 Days - Family History Known Family History: Positive: Cardiac Disease, Hypertension Family History: Brother: CVA - Social History Alcohol Use: None Hx Substance Use: No Substance Use Type: Reports: None Hx Tobacco Use: No Smoking Status (MU): Never Smoked Tobacco Review of Systems Positive: Fatigue. Negative: Fever, Chills Negative: Chest Pain Negative: Vomiting, Nausea Positive: other - NO URINARY SX REPORTED, NO BLOOD IN STOOL . Negative: dysuria Negative: Myalgia Negative: Rash Neurological: Other - POSITIVE - DIZZINESS Positive: Headache, Syncope - NEAR All Other Systems Reviewed And Are Negative: Yes Physical Exam - Summary Physical Exam Summary: Appearance: Well-appearing, Well-nourished, lying in bed comfortably Skin: Warm, dry, no obvious rash Eyes: sclera anicteric, no conjunctival pallor ENT: mucous membranes moist, pharynx appears normal Neck: Supple, nontender Respiratory: Clear to auscultation, no signs of respiratory distress Cardiovascular: Normal S1, S2. No murmurs. Normal distal pulses in tibial and radial bilaterally. Abdomen: Soft, nontender, normal active bowel sounds present Musculoskeletal: Normal, Strength/ROM Intact Neurological: A&Ox3, awake and alert, mentation is normal, speech is fluent and appropriate Psychiatric: affect is normal, does not appear anxious or depressed Triage Information Reviewed: Yes Vital Signs On Initial Exam: Initial Vitals Temp Pulse Resp BP Pulse Ox 98.1 F 78 18 167/75 98 04/27/18 14:00 04/27/18 14:00 04/27/18 14:00 04/27/18 14:00 04/27/18 14:00 Vital Signs Reviewed: Yes Diagnostics - Vital Signs Vital Signs Temp Pulse Resp BP Pulse Ox 04/27/18 14:00 98.1 F 78 18 167/75 98 - Laboratory Result Diagrams: 04/27/18 15:27 04/27/18 15:27 Lab Statement: Any lab studies that have been ordered have been reviewed, and results considered in the medical decision making process. - CT BRAIN CT CT Interpretation Completed By: Radiologist Summary of CT Findings: BRAIN CT IMPRESSION: 1. There is stable age-related diffuse cerebral volume loss and chronic. microvascular ischemic disease. 2. No acute intracranial pathology. THIS REPORT WAS REVIEWED BY ED PHYSICIAN. HEAD CTA CT Interpretation Completed By: Radiologist Summary of CT Findings: HEAD CTA IMPRESSION: No acute CTA pathology of the neck. THIS REPORT WAS REVIEWED BY ED PHYSICIAN. - EKG 1415 Cardiac Rate: Bradycardia - RATE OF 59 BPM EKG Rhythm: Sinus Bradycardia Summary of EKG Findings: EKG showed sinus bradycardia at 59 BPM, P waves, QRS complex, and T waves are within normal limits, T waves and intervals are normal , no ischemic changes. Disposition - Course Course Of Treatment: Patient is a 82 y/o F presenting to ED with generalized malaise, dizziness, episodes of near syncope. She went to see PCP this morning. An EKG was taken and was noted to be different from previous one, patient was recommended to come to ED. She notes that she was here at [facility] in February for since Sx. Patient was discharged to home with an increase in her amlodipine. Since discharge, patient states that she has been experiencing more and more frequent episodes of Sx. She denies N/V, rashes, joint pain, fever, chills, urinary Sx, dysuria, blood in stool, chest pain. Patient reports occasional headaches. No PMHx of diabetes, respiratory issues, cardiac issues reported. Physical exam is normal. EKG showed sinus bradycardia at 59 BPM, P waves, QRS complex, and T waves are within normal limits, T waves and intervals are normal , no ischemic changes. BRAIN CT IMPRESSION: 1. There is stable age-related diffuse cerebral volume loss and chronic. microvascular ischemic disease. 2. No acute intracranial pathology. Labs showed creatinine 1, BUN/creatinine ratio 24, CRP 4.84, trop 0, TSH 1.54. UA showed trace ketones, trace leukocyte esterase, trace WBC and RBC, bacteria absent, hyaline casts present, ascorbic acid present. Patient's case was discussed with Dr. Barajas at 2018, Dr. Barajas recommends HEAD CTA. HEAD CTA IMPRESSION: No acute CTA pathology of the neck. 2019 - Patient's case was discussed with Dr. Mosqueda, Dr. Mosqueda accepts for admission. - Diagnoses Provider Diagnoses: Generalized weakness, Ataxia - Physician Notifications Discussed Care Of Patient With: Rose Galvan Time Discussed With Above Provider: 20:22 Instructed by Provider To: Other - Patient's case was discussed with Dr. Galvan , Dr. Galvan recommends CTA Head. 2019 - Patient's case was discussed with Dr. Mosqueda, Dr. Mosqueda accepts for admission. Discharge - Sign-Out/Discharge Documenting (check all that apply): Patient Departure - admit - Discharge Plan Condition: Good Disposition: ADMITTED TO [facility] - Billing Disposition and Condition Condition: GOOD Disposition: Admitted to [facility] - Attestation Statements Document Initiated by Zoe: Yes Documenting Scribe: ARLENE SIFUENTES Provider For Whom Zoe is Documenting (Include Credential): BORIS MA MD Scribe Attestation: I, ARLENE SIFUENTES , scribed for BORIS MA MD on 04/28/18 at 1423. Scribe Documentation Reviewed: Yes Provider Attestation: The documentation as recorded by the ARLENE blunt accurately reflects the service I personally performed and the decisions made by me, BORIS MA MD Status of Scribe Document: Viewed
[2018-04-27 15:36] LABS: ABS Basophils 0 10^3/ul (0-0.2); ABS Eosinophils 0.1 10^3/ul (0-0.6); ABS Lymphocytes 1.3 10^3/ul (1.0-4.8); ABS Monocytes 0.6 10^3/ul (0-0.8); ABS Neutrophils 4.9 10^3/ul (1.5-7.7); ABS Nucleated RBC 0 10^3/ul; Eosinophil % 1.1 %; Hematocrit 42 % (35-47); Hemoglobin 14.1 g/dl (12.0-16.0); Lymphocyte % 18.9 %; Mean Corpuscular HGB Conc 33 g/dl (31-36); Mean Corpuscular Hemoglobin 31 pg (27-31); Mean Corpuscular Volume 94 fL (80-97); Mean Platelet Volume 8.7 fL (7.4-10.4); Nucleated Red Blood Cells % 0; Platelet Count 225 10^3/ul (150-450); Red Blood Count 4.48 10^6/ul (4.00-5.40); Red Cell Distribution Width 13 % (10.5-15); White Blood Count 6.9 10^3/ul (3.5-10.8)
[2018-04-27 16:30] LABS: Urine Appearance Clear; Urine Blood Negative (Negative); Urine Color Yellow; Urine Ketones Trace (Negative); Urine Protein Negative (Negative); Urine Red Blood Cell Trace(0-2/hpf) (Absent); Urine Specific Gravity 1.006 (1.010-1.030); Urine Urobilinogen Negative (Negative); Urine White Blood Cell Trace(0-5/hpf) (Absent)
[2018-04-27] MEDS ORDERED: Iodixanol* (CONTRAST) 320 MG/ML 100 ML SDV IV ONE (21:12)
[2018-04-27] MEDS ORDERED: Aspirin EC TAB* 325 MG PO ONE (22:43)
[2018-04-28] MEDS ORDERED: Acetaminophen TAB* 325 MG PO PRN (00:18)
[2018-04-28] MEDS ORDERED: Al Hydrox/Mg Hydrox/Simet LIQ* 30 ML UDC PO PRN (00:18)
[2018-04-28] MEDS ORDERED: Ondansetron INJ* 2 MG/ML VIAL IV PRN (00:18)
[2018-04-28] MEDS ORDERED: AFLIBERCEPT LEFT EYE SCH (00:30)
[2018-04-28] MEDS: Heparin VIAL(*) 5000 UNITS/ML VIAL (FIVE THOUSAND) SUBCUT SCH ×2 (06:14→13:06)
--- NOTE | 2018-04-28 07:13 | HP ---
CC: Adelina Fonseca MD * HISTORY AND PHYSICAL: DATE OF ADMISSION: 04/28/18 TIME OF EVALUATION: 0000. PRIMARY CARE PHYSICIAN: Adelina Fonseca MD CHIEF COMPLAINT: Weakness, lightheadedness. HISTORY OF PRESENT ILLNESS: This is an 82-year-old female with past medical history of hypertension, who presents to the emergency room with worsening weakness. She states that for the past few weeks, she has been very lightheaded and fatigued with generalized weakness. She states recently she has had these episodes where she gets very lightheaded and dizzy and feels like she is going to pass out. She has trouble concentrating. She has had some shortness of breath with exertion and some nausea. She has gotten to the point where this is affecting her quality of life where she is afraid to drive that she is worried that she will have an event and she will actually pass out. She is not able to go out as much because of these events that are happening as she calls them. She denies any loss of consciousness, no falls, no chest pain, no abdominal pain, no urinary symptoms, no fevers, no black stools. She has lost weight but she states she has had a decrease in appetite. She states back in February, she was seen in the emergency room for chest pain. She was found to have elevated blood pressure and she was started on amlodipine. She was recently increased on her amlodipine to 10 mg. Otherwise, review of systems is negative. In the emergency room, the patient had labs and imaging. They tried to stand her and she failed the Romberg's test and the concern was for a possible stroke and she has been referred to the hospitalist service for further evaluation. PAST MEDICAL HISTORY: 1. Hard of hearing, status post hearing aids. 2. Hypertension. 3. GERD. 4. History of peptic ulcer disease. 5. Arthritis. 6. Osteoporosis. 7. History of cataracts. 8. Depression and anxiety. 9. History of renal cell tumor, status post resection. MEDICATIONS: 1. Amlodipine 10 mg p.o. daily. 2. Hydroxyzine 10 mg 1 to 2 tabs every evening as needed. 3. Premarin apply topically to introitus x2 weeks, then 2 times weekly. 4. PreserVision AREDS 1 tab by mouth twice daily. 5. Sodium chloride eyedrops daily. 6. Calcium 600 mg daily. 7. Aflibercept eye injections. 8. Meclizine 12.5 mg by mouth b.i.d. as needed for dizziness. ALLERGIES: BACTRIM. FAMILY HISTORY: Mother in her 80s from an [place]. Father as well in his 80s from an [place]. SOCIAL HISTORY: The patient lives at home alone. She ambulates independently and independent of her ADLs. Her son does look behind her. No history of smoking, alcohol, or illicit drug use. Her healthcare proxy is her sister, Adelina Nguyen. Code status is full code. REVIEW OF SYSTEMS: A 14-point review of systems as mentioned in the HPI, otherwise negative. PHYSICAL EXAMINATION GENERAL: No acute distress, resting comfortably. VITAL SIGNS: Temp 98.1, pulse rate 71, respiratory rate 20, oxygen saturation 95% on room air, and blood pressure 144/76. HEENT: Head normocephalic. Pupils are equal and reactive. Anicteric. Oropharynx: Mucous membranes are moist. NECK: Supple. No adenopathy. RESPIRATORY: Clear to auscultation. No wheezes, rhonchi, or rales. CARDIAC: Regular rate and rhythm. Soft systolic murmur heard throughout. ABDOMEN: Soft, nontender and nondistended. EXTREMITIES: No clubbing, cyanosis, or edema. +1 DPs. NEUROLOGIC: Alert and oriented x3. No gross focal neurologic deficits. Negative pronator drift. Did not attempt to ambulate or stand her. DIAGNOSTIC STUDIES/LAB DATA: White count 6.9, hemoglobin 14.1, hematocrit 42, platelets 225. Sodium 141, potassium 4.6, chloride , bicarb 26, BUN 24, creatinine 1, glucose 76. Troponin is 0. Urinalysis shows specific gravity of 1.006, otherwise unremarkable. Head CT: There is a stable age-related diffuse cerebral volume loss and chronic microvascular ischemic disease. No acute intracranial pathology. Head CTA: No acute pathology. EKG shows sinus bradycardia with rate of [address] changes. ASSESSMENT AND PLAN: An 82-year-old female with a past medical history of hypertension, who presents to the emergency room with presyncopal symptoms. Presyncope. Assessment: It is unclear of the etiology. It is possible she is having sinus bradycardia or pauses or an underlying arrhythmia that is contributing to her presyncopal presentation. With the concern for failing the Romberg exam, it is possible she had a cerebellar infarct that is contributing to her presentation but seems atypical. No significant murmur on exam. Could be hypotension from the increase in her amlodipine. Plan: We will admit her for observation on telemetry. I am going to hold her amlodipine, check orthostatics. Continue her on her baby aspirin, check an MRI, and an echocardiogram and a PT evaluation. Also get a portable x-ray in setting of dyspnea on exertion. Also, obtain a bedside swallow eval. CHRONIC MEDICAL PROBLEMS: As mentioned, we will resume her home medications but hold her amlodipine and monitor her blood pressure. FEN. Regular diet when she passes a bedside swallow. DVT prophylaxis. The patient scores high risk. Place her on heparin subcu t.i.d. Code status. Full code. PATIENT TIME: Greater than 45 minutes was spent doing the history and physical , more than half the time spent in direct patient contact. [id number] #: [id number] MTDD
[2018-04-28] MEDS ORDERED: Calcium Carbonate CHEW TAB* 500 MG (TUMS) PO SCH (09:00)
[2018-04-28] MEDS ORDERED: Multivitamins/Minera Areds(NF) 1 CAP CAP PO SCH (09:00)
[2018-04-28] MEDS ORDERED: Aspirin 81 mg CHEW TAB* 81 MG TAB.CHEW PO SCH (09:00)
[2018-04-28] MEDS ORDERED: Sodium Chloride 5% OPTH.SOL* 15 ML BTL BOTH EYES SCH (09:00)
--- NOTE | 2018-04-28 11:38 | PN ---
Subjective Date of Service: 04/28/18 Interval History: Pt resting comfortably in bed, NAD. Pt reports her episodes of lightheadedness, cheek flushing, and nausea come and go. She did have an episode earlier today while sitting in the chair. She got back in bed and it passed. She does say that episodes have been provoked by positional changes in the past, but that it is not consistent. Pt reports eating and drinking like usual. No vomiting or diarrhea. Denies chest pain. Does have some baseline mild shortness of breath with exertion, but she does not report that this is worse. Denies headache, vertigo, abdominal pain, vomiting. Objective Active Medications: Acetaminophen (Tylenol Tab*) 650 mg PO Q4H PRN PRN Reason: FEVER/PAIN Al Hydrox/Mg Hydrox/Simethicone (Maalox Plus*) 30 ml PO Q6H PRN PRN Reason: INDIGESTION Aspirin (Aspirin 81 Mg Chew Tab*) 81 mg PO DAILY [facility] Last Admin: 04/28/18 08:41 Dose: 81 mg Calcium Carbonate (Tums*) 500 mg PO DAILY [facility] Last Admin: 04/28/18 08:40 Dose: 500 mg Heparin Sodium (Porcine) (Heparin Vial(*)) 5,000 units SUBCUT Q8HR [facility] Last Admin: 04/28/18 06:14 Dose: 5,000 units Multivitamins/Minerals (Preservision Areds(Multivitamins/Mineral)(Nf)) 1 cap PO BID [facility] Last Admin: 04/28/18 08:42 Dose: Not Given Non-Formulary Medication (Aflibercept) 1 inj LEFT EYE Q60D [facility] Last Admin: 04/28/18 02:31 Dose: Not Given Ondansetron HCl (Zofran Inj*) 4 mg IV Q4H PRN PRN Reason: NAUSEA/VOMITING Sodium Chloride (Hypertonic) (Lupe 128 Opth 5% Opth.Soll*) 1 drop BOTH EYES DAILY [facility] Last Admin: 04/28/18 08:42 Dose: Not Given Vital Signs - 8 hr 04/28/18 04/28/18 04/28/18 03:51 03:52 08:01 Temperature Pulse Rate 64 75 78 Blood Pressure 165/68 126/72 164/76 (mmHg) O2 Sat by Pulse Oximetry 04/28/18 10:07 Temperature 97.9 F Pulse Rate 74 Blood Pressure (mmHg) O2 Sat by Pulse 99 Oximetry Oxygen Devices in Use Now: None Eyes: No Scleral Icterus, PERRLA Ears/Nose/Mouth/Throat: NL Teeth, Lips, Gums, Mucous Membranes Moist Neck: NL Appearance and Movements; NL JVP, Trachea Midline Respiratory: Symmetrical Chest Expansion and Respiratory Effort, Clear to Auscultation Cardiovascular: NL Sounds; No Murmurs; No JVD, RRR, No Edema Abdominal: NL Sounds; No Tenderness; No Distention Extremities: No Edema, No Clubbing, Cyanosis Skin: No Rash or Ulcers Neurological: Alert and Oriented x 3, NL Muscle Strength and Tone, - - No pronator drift. Finger to nose intact. Did not assess Romberg Nutrition: Taking PO's Result Diagrams: 04/27/18 15:27 04/27/18 15:27 Assess/Plan/Problems-Billing Assessment: 82 year old female with PMH HTN, GERD who presented to ED ED with a few week history of episodes of pre-syncope/lightheadedness/flushing that have become more frequent. Of note, in February pt's amlodipine dose was doubled from 5mg daily to 10mg daily. In ED failed Romberg. Admitted due to concern for cerebellar stroke vs cardiac pre-syncope - Patient Problems (1) Pre-syncope Current Visit: Yes Status: Acute Comment: - Concern for cerbellar stroke (due to failed Romberg in ED) vs cardiac origin vs orthostatic hypotension and BP fluctutations - CT brain with no acute abnormalities - MRI pablo pending - Echo pending - No arrythmias on tele (2) Orthostatic hypotension Current Visit: Yes Status: Acute Code(s): I95.1 - ORTHOSTATIC HYPOTENSION SNOMED Code(s): 01770046 Comment: - Pt orthostatic from 165/68 (sitting) to 126/72 (standing) - Holding amlodipine (3) Hypertension Current Visit: Yes Status: Acute Code(s): I10 - ESSENTIAL (PRIMARY) HYPERTENSION SNOMED Code(s): 95735572 Comment: - Holding amlodipine as symptoms have gotten worse since dose increase - BP predominantly 150-180s, but found to have orthostatic hypotension Attending: Geraldine Astudillo
--- NOTE | 2018-04-28 14:39 | ECHO ---
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 Left Ventricle: The left ventricular chamber size is normal. Mild concentric left ventricular hypertrophy is observed. Global left ventricular wall motion and contractility are within normal limits. The estimated ejection fraction is 60-65%. There is no consistent Doppler evidence of clinically significant diastolic dysfunction. Left Atrium: The left atrial chamber size is normal. Right Ventricle: The right ventricular cavity size is normal. The right ventricular global systolic function is low normal. Right Atrium: The right atrial cavity size is normal. Aortic Valve: The aortic valve leaflets are mildly thickened. Systolic excursion of the aortic valve is normal. There is no evidence of aortic regurgitation. There is no evidence of aortic stenosis. Mitral Valve: The mitral valve leaflets are mildly thickened. There is mild mitral regurgitation. There is no evidence of mitral stenosis. Tricuspid Valve: The tricuspid valve leaflets are normal. There is mild to moderate tricuspid regurgitation. No pulmonary hypertension is noted. Pulmonic Valve: The pulmonic valve appears normal. There is a trace pulmonic regurgitation. Pericardium: There is no significant pericardial effusion. Aorta: The ascending aorta is not well visualized. There is no dilatation of the aortic arch. The aortic root is normal in size. Pulmonary Artery: The main pulmonary artery is not well visualized. Venous: The inferior vena cava appears normal in size. There is a greater than 50% respiratory change in the inferior vena cava dimension. Conclusions Mild concentric left ventricular hypertrophy is observed. Global left ventricular wall motion and contractility are within normal limits. The estimated ejection fraction is 60-65%. The right ventricular global systolic function is low normal. There is mild mitral regurgitation. There is mild to moderate tricuspid regurgitation. No prior echo to compare. Measurements Name Value Normal Range RVIDd (AP) 2D 2.1 cm (0.9 - 2.6) RVDdMajor (2D) 3 cm (2.2 - 4.4) RAd ISD 4CH 4.5 cm (3.4 - 4.9) RA (A4C)W 4.4 cm (2.9 - 4.6) IVSd (2D) 1.2 cm (0.6 - 1) LVPWd (2D) 1.1 cm (0.6 - 1) LVIDd (2D) 4.3 cm (3.6 - 5.4) LVIDs (2D) 2.5 cm - LV FS (2D) 20 % (25 - 45) Aortic Annulus 2 cm (1.4 - 2.6) Ao root diameter (2D) 2.6 cm (2.1 - 3.5) Aortic arch 2.4 cm (1.8 - 3.4) LA dimension (AP) 2D 2.9 cm (2.3 - 3.8) LAd ISD 4CH 4.5 cm (2.9 - 5.3) LA ISD 4CH W 2.8 cm (2.5 - 4.5) Name Value Normal Range LA ESV BP (A/L) index 22 ml/m2 - Name Value Normal Range MV E-wave Vmax 0.8 m/sec - MV deceleration time 211 msec - MV A-wave Vmax 0.8 m/sec - MV E:A ratio 1 ratio - LV septal e' Vmax 0.07 m/sec - LV lateral e' Vmax 0.08 m/sec - LV E:e' septal ratio 11 ratio - LV E:e' lateral ratio 10 ratio - Name Value Normal Range AV Vmax 0.9 m/sec - AV VTI 23 cm - AV peak gradient 3.2 mmHg - AV mean gradient 2 mmHg - LVOT Vmax 0.7 m/sec - LVOT VTI 13 cm - LVOT peak gradient 2 mmHg - LVOT mean gradient 1 mmHg - JOE Vmax 0.4 m/sec - Name Value Normal Range TR Vmax 2.6 m/sec - TR peak gradient 27 mmHg - RAP 3 mmHg - RVSP 30 mmHg - IVC diameter 1.6 cm - Name Value Normal Range PV Vmax 0.5 m/sec - PV peak gradient 1 mmHg -
[2018-04-28] MEDS ORDERED: NS 0.9% 1000 ML* 1,000 ML IV SCH (16:00)
[2018-04-28 16:02] VITALS: BP 130/70
--- NOTE | 2018-04-29 09:44 | DS ---
CC: Adelina Fonseca MD * DISCHARGE SUMMARY: DATE OF ADMISSION: 04/28/18 DATE OF DISCHARGE: 04/28/18 ATTENDING PHYSICIAN: Geraldine Astudillo MD * (dictated by Mary Phillips NP) PRIMARY CARE PROVIDER: Adelina Fonseca MD PRIMARY DIAGNOSES: 1. Presyncope. 2. Orthostatic hypotension. SECONDARY DIAGNOSIS: Hypertension. DISCHARGE MEDICATIONS: 1. Meclizine 1 tab p.o. b.i.d. p.r.n. 2. Cetirizine 10 mg p.o. daily p.r.n. 3. Aflibercept 1 injection left eye q.60 days. 4. Calcium carbonate 600 mg p.o. daily. 5. Sodium chloride 5% ophthalmic solution 1 drop both eyes daily. 6. PreserVision AREDS soft gel 1 cap p.o. b.i.d. 7. Premarin vaginal cream 0.5 application vaginal twice weekly. New medications on discharge: The patient's dose of Norvasc has been changed from 10 mg p.o. daily to 5 mg p.o. daily. Discontinued medications: I have discontinued the patient's Atarax as she reports she sometimes feels extra groggy or weak when she wakes up after taking this medication. STUDIES WHILE IN THE HOSPITAL: The patient had a brain CT which showed stable age- related diffuse cerebral volume loss and chronic microvascular ischemic disease. No acute intracranial pathology. CTA head and neck: No acute CTA pathology of the neck. Brain MRI: No intracranial lesion identified. No restriction of diffusion is noted. Findings consistent with chronic ischemic white matter change. Transthoracic Echo: Mild concentric LV hypertrophy. Global LV wall motion and contractility are within normal limits. Estimated EF 60% to 65%. Right ventricular global systolic function is low normal. Mild mitral regurgitation. [id number] tricuspid regurgitation. No prior echo to compare. Chest x-ray: No evidence of acute disease. HOSPITAL COURSE: The patient is an 82-year-old female with a past medical history significant for hypertension who presented to the ED with worsening weakness and presyncopal episodes. The patient reports that for the past few weeks she has been having episodes of lightheadedness along with occasional nausea and feeling like she is flushed. She states the episodes resolve and then she feels like she is back to her baseline. The episodes have gotten increasingly more frequent and she feels like this is affecting her quality of life. She denied any loss of consciousness, falls, chest pain, abdominal pain, dysuria, or black tarry stools. She has a decreased appetite because of these episodes where she transiently feels nauseous. Of note, she was evaluated in the ED in February with hypertension and at that time her dose of amlodipine was increased from 5 mg which she had been on for many years, up to 10 mg. The patient reports that since having this medication adjustment, her episodes of presyncope have become more frequent. Of note in the ED, the patient failed the Romberg's test and they were concerned for a possible cerebellar stroke and she was admitted to hospitalist for further evaluation of her presyncope. The patient's vital signs were stable throughout her stay. She was afebrile without leukocytosis. Orthostatic vitals were done and the patient did demonstrate orthostatic hypotension. She went from a blood pressure of 165/68 while sitting to 126/72 while standing. The patient was repleted with IV fluids to address this. The patient was monitored on telemetry and no arrhythmias were noted. Troponins were negative x2 and EKG showed no acute abnormalities. She underwent an echo that showed a normal EF and no severe valvular abnormalities. The patient also underwent a brain CT, head and neck CTA and an MRI which were all negative. It is likely that the patient's increasing episodes of presyncope are related to her blood pressure fluctuations. The patient's amlodipine was held during her hospitalization and I have reduced the dose from 10 mg to 5 mg at the time of discharge. The patient might need additional agents to achieve ideal blood pressure control; however, I recommend close followup with the patient's primary care provider, Dr. Fonseca for medication titration. Also of note, the patient mentioned that she had been taking Atarax at night and this was contributing to her feelings of weakness in the morning, so I recommended that she discontinue this medication for now and can reevaluate with Dr. Fonseca. The patient's family does note that she does have a history of anxiety and they feel that these episodes could also be related to that. Further evaluation as an outpatient can be conducted. At the day of discharge, the patient did have a transient episode of nausea; however, that was resolved and the patient was able to eat dinner successfully. She reported that she was no longer lightheaded and felt comfortable going home and following up with Dr. Fonseca as an outpatient. DISPOSITION: Discharged to home. DIET: Regular diet. ACTIVITY: Activity as tolerated. FOLLOWUP: The patient was instructed to follow up with her primary care provider, Dr. Fonseca in 4 to 7 days. TIME SPENT: Time spent on this discharge was 60 minutes. MARY PHILLIPS, DUANE [id number]/[facility] #: [id number] [place]
== END 2018-04-28 19:35 | disposition home or self-care (01) ==
LOC: ED 13:58 → MEDTELE 04-28 00:18
PROVIDERS: ADMIT Pediatrics; ATTEND Internal Medicine
DX: R55 Syncope and collapse (principal); I95.1 Orthostatic hypotension; I10 Essential (primary) hypertension; K21.9 Gastro-esophageal reflux disease without esophagitis; Z87.11 Personal history of peptic ulcer disease; M19.90 Unspecified osteoarthritis, unspecified site; F41.8 Other specified anxiety disorders; Z85.528 Personal history of other malignant neoplasm of kidney; R51 Headache; R42 Dizziness and giddiness; R53.1 Weakness
CPT/HCPCS: 36415; 70450; 70496; 70498; 70551; 71045; 80053; 80061; 81003; 81015; 83605; 83735; 84443; 84484; 85025; 85652; 86140; 87086; 93005; 93306; 99284; A9270-GY; G8978-GP-CI; G8979-GP-CH; G8987-GO-CI; G8988-GO-CH; J1644; Q9967

== ENCOUNTER 2018-12-13 11:53 | Emergency (ER) | payer MEDICARE ==
--- OUTSIDE RECORDS SUMMARY | 2018-12-13 12:08 | XMS REPORT | Continuity of Care Document ---
:1935 External Reference #:[id number] Author Name Adelina Fonseca M.D. Address [address] [place] [address] Care Team Providers Name Role Phone Adelina Fonseca M.D. Care Team Information [employer] Unavailable Adelina Fonseca M.D. Primary Care Physician Unavailable Payers Date Identification Numbers Payment Provider Subscriber Effective: 2016 Policy Number: [id number] Medicare Blue Ppo Concepcion Carr[employer] Number: [id number] [address] [id number] PayID: [id number] [place] [address] Problems Active Problems Provider Date Gastroesophageal reflux disease Adelina Fonseca M.D. Onset: 04/27/2017 Generalized anxiety disorder Adelina Fonseca M.D. Onset: 04/27/2017 Essential hypertension Adelina Fonseca M.D. Onset: 04/27/2017 History of malignant neoplasm of kidney Adelina Fonseca M.D. Onset: 04/27/2017 Anxiety state Adelina Fonseca M.D. Onset: 03/15/2018 Osteoporosis Adelina Fonseca M.D. Onset: 03/15/2018 Obstructive sleep apnea syndrome Adelina Fonseca M.D. 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 and 12 hours off Buspirone HCL 1/2-1 tab by mouth 60tabs F41.9 [facility], 09/29/2018 5mg twice a day as M.D. Tablets needed Amlodipine Besylate take with your 5 90tabs I95.1 [facility], 09/22/2018 mg tablets to M.D. 2.5mg Tablets total 7.5 mg nightly. Amlodipine Besylate 1 by mouth every 90tabs Adelina Fonseca, 04/29/2018 5mg day M.D. Tablets Acetaminophen Extra 2 tabs by mouth M54.6 Unknown Strength three times a day 500mg Tablets Vitamin D3 1 by mouth every Unknown 1000Unit day Capsules Aflibercept eye injections Unknown Solution Omeprazole 1 by mouth every Unknown 20mg day Capsules DR Calcium 1 by mouth every Unknown 600mg Tablets day Sodium Chloride 1 gtt both eyes qd Unknown 5% Solution Preservision Areds 1 cap by mouth Unknown daily Capsules Premarin apply 0.5 g Unknown 0.625mg/GM topically to Cream introitus daily x 2 weeks, then two times weekly ongoing History Medications Amlodipine Besylate 1 by mouth every 90tabs [facility], 03/15/2018 - 10mg day M.D. 04/29/2018 Tablets Hydroxyzine HCL 1-2 tabs by mouth 60tabs I10 Adelina [place], 03/15/2018 - 10mg every evening as M.D. 04/29/2018 Tablets needed Ranitidine HCL 1 tab by mouth 60tabs K21.9 Poonam Roy 12/08/2017 - 150mg twice a day DUANE Giron 02/15/2018 Tablets Nitrofurantoin Monohyd 1 by mouth twice 10caps N39.0 Poonam Roy 2017 - Macro a day x 5 days DUANE Giron 09/23/2017 100mg Capsules Vitamin D-3 1 by mouth every 180caps Adelina Fonseca, 03/23/2017 - 1000Unit day M.D. 10/29/2017 Capsules Escitalopram Oxalate take one tablet 30tabs F41.1 Adelina Fonseca, 2016 - 5mg by mouth at M.D. 04/27/2017 Tablets bedtime Amlodipine Besylate 1 by mouth every Unknown - 2.5mg day 03/05/2018 Tablets Allergy tab as needed Unknown - Tablets 05/31/2018 Amlodipine Besylate 4 by mouth every Unknown - 2.5mg day 03/15/2018 Tablets Meclizine HCL Take 1 Tablet By 60tabs Jackson Selina - 12.5mg Mouth Two Times MD Alessio 05/03/2018 Tablets Daily as Needed For Dizziness Immunizations CPT Code Status Date Vaccine Lot # [id number] Given 03/27/2018 High-Dose, Influenza Virus Vacccine-fluzone 65 and [id number] older Vital Signs Date Vital Result Comment 11/24/2018 3:00pm BP Systolic 110 mmHg BP Diastolic 72 mmHg Heart Rate 64 /min Body Temperature 97.3 F Respiratory Rate 16 /min Height 62.75 inches 5'2.75" Weight 134.25 lb shoes on BMI (Body Mass Index) 24.0 kg/m2 10/08/2018 1:11pm BP Systolic 122 mmHg BP Diastolic 72 mmHg Heart Rate 72 /min Body Temperature 96.4 F Weight 133.00 lb 09/29/2018 10:42am BP Systolic 126 mmHg BP Diastolic 70 mmHg Heart Rate 78 /min Body Temperature 97.9 F Respiratory Rate 16 /min Weight 136.00 lb 09/22/2018 1:58pm BP Systolic 140 mmHg BP Diastolic 90 mmHg Heart Rate 78 /min Body Temperature 98.3 F Respiratory Rate 16 /min Weight 136.00 lb 05/31/2018 1:47pm BP Systolic 146 mmHg BP Diastolic 78 mmHg Heart Rate 74 /min Body Temperature 97.4 F Respiratory Rate 20 /min Weight 135.50 lb 05/03/2018 12:54pm BP Systolic 128 mmHg BP Diastolic 60 mmHg Heart Rate 60 /min Body Temperature 97.3 F Respiratory Rate 16 /min Height 62.75 inches 5'2.75" measured 03/15/18 Weight 134.25 lb BMI (Body Mass Index) 24.0 kg/m2 04/27/2018 12:54pm BP Systolic 120 mmHg BP Diastolic 82 mmHg Heart Rate 72 /min Body Temperature 98.3 F Respiratory Rate 16 /min Height 62.75 inches 5'2.75" measured 03/15/18 Weight 130.00 lb BMI (Body Mass Index) 23.2 kg/m2 03/15/2018 3:50pm BP Systolic 118 mmHg BP Diastolic 60 mmHg Heart Rate 60 /min Body Temperature 96.8 F Respiratory Rate 16 /min Height 62.75 inches 5'2.75" measured 03/15/18 Weight 134.00 lb BMI (Body Mass Index) 23.9 kg/m2 03/05/2018 11:45am BP Systolic 132 mmHg BP Diastolic 80 mmHg Heart Rate 72 /min Body Temperature 97.5 F Respiratory Rate 16 /min Weight 132.25 lb 03/02/2018 2:52pm BP Systolic 160 mmHg BP Diastolic 70 mmHg Heart Rate 83 /min Respiratory Rate 22 /min 02/15/2018 1:33pm BP Systolic 178 mmHg BP Diastolic 90 mmHg Heart Rate 70 /min Body Temperature 97.2 F Respiratory Rate 22 /min Weight 135.50 lb 12/08/2017 10:10am BP Systolic 142 mmHg BP Diastolic 82 mmHg Heart Rate 60 /min Body Temperature 98.3 F Height 62 inches 5'2" Weight 135.00 lb BMI (Body Mass Index) 24.7 kg/m2 10/29/2017 10:19am BP Systolic 138 mmHg BP Diastolic 78 mmHg Heart Rate 74 /min Body Temperature 97.8 F Respiratory Rate 16 /min Height 62 inches 5'2" Weight 138.00 lb BMI (Body Mass Index) 25.2 kg/m2 10/17/2017 9:29am BP Systolic 110 mmHg BP Diastolic 62 mmHg Heart Rate 76 /min Body Temperature 97.9 F Respiratory Rate 16 /min Height 62 inches 5'2" Weight 140.38 lb BMI (Body Mass Index) 25.7 kg/m2 09/30/2017 7:38pm BP Systolic 168 mmHg BP Diastolic 80 mmHg Heart Rate 72 /min Body Temperature 97.9 F Respiratory Rate 16 /min Height 62 inches 5'2" Weight 140.00 lb BMI (Body Mass Index) 25.6 kg/m2 09/04/2017 1:26pm BP Systolic 138 mmHg BP Diastolic 90 mmHg Heart Rate 76 /min Body Temperature 98.0 F Respiratory Rate 17 /min Height 62 inches 5'2" Weight 139.38 lb BMI (Body Mass Index) 25.5 kg/m2 04/27/2017 11:36am BP Systolic 128 mmHg BP Diastolic 70 mmHg Heart Rate 78 /min Body Temperature 98.1 F Height 62 inches 5'2" Weight 135.50 lb BMI (Body Mass Index) 24.8 kg/m2 03/27/2017 4:14pm BP Systolic 142 mmHg BP Diastolic 84 mmHg Heart Rate 72 /min Body Temperature 97.3 F Height 62 inches 5'2" Weight 139.12 lb BMI (Body Mass Index) 25.4 kg/m2 03/23/2017 6:44pm BP Systolic 120 mmHg BP Diastolic 80 mmHg Heart Rate 64 /min Body Temperature 97.9 F Respiratory Rate 18 /min Height 62 inches 5'2" Weight 139.00 lb BMI (Body Mass Index) 25.4 kg/m2 Results Test Date Facility Test Result H/L Range Note Comprehensive Metabolic 09/22/2018 [facility]) Sodium 141 mEq/L 134-149 Prof Potassium 5.0 mEq/L 3.6-5.5 Chloride 102 mEq/L 94-112 Carbon Dioxide 26 mEq/L 21-32 Glucose 80 mg/dL 70-105 BUN 23 mg/dL 6-26 Creatinine 0.9 mg/dL 0.6-1.4 BUN/Creat Ratio 25.6 CALC 8.0-36.0 Calcium 9.6 mg/dL 8.6-10.2 Total Protein 7.2 g/dL 6.4-8.3 Albumin 4.8 g/dL 3.8-5.5 Globulin 2.4 g/dL 2.0-4.8 A/G Ratio 2.0 CALC 0.6-2.3 Alk. Phosphatase 102 U/L 30-110 Alt (SGPT) 18 U/L 7-35 Ast (Sgot) 27 U/L 5-34 Total Bilirubin 0.7 mg/dL 0.2-1.3 GFR Non- >60 ml/min/1.73m^ >=60 GFR >60 ml/min/1.73m^ >=60 Laboratory test finding 09/22/2018 [facility]) TSH 1.55 mIU/L 0.50-6.00 CBC Electronic a 09/22/2018 [facility]) WBC 4.4 x10^3/UL 4.0- 10.0 RBC 4.26 x10^6/UL 3.93-6.00 HGB 13.3 g/dL 12.0-17.0 HCT 41 % 35-50 MCV 95.0 fL 80.0-95.0 MCH 31.2 pg 25.6-32.2 MCHC 32.8 g/dL 32.2-36.0 RDW-CV 13.2 % 11.6-14.4 PLT 220 x10^3/UL 163-400 MPV 10.5 fL 9.4-12.4 Qamar# 2.79 x10^3/UL 1.56-6.13 Lymph# 1.04 x10^3/UL Low 1.18-3.74 Graham# 0.41 x10^3/UL 0.24-0.82 Eos # 0.1 x10^3/UL 0.0-0.5 Baso # 0.03 x10^3/UL 0.01-0.08 Aqmar% 63.8 % 34.0-70.0 Lymph % 23.8 % 20.0-52.0 Graham% 9.4 % 5.0-12.0 Eos% 2.1 % 0.7-7.0 Baso% 0.7 % 0.1-1.2 Laboratory test finding 04/28/2018 [facility] [place]rop[place] I 0.00 ng/mL <0.04 1 Urine Culture And 04/27/2018 [facility] [place] Culture SEE RESULT BELOW 2 Sensitivities Lipid Profile 04/27/2018 [facility] Triglycerides 80 mg/dL 3 (Trig/Chol/HDL) Cholesterol 191 mg/dL 4 HDL Cholesterol 63.0 mg/dL 5 LDL Cholesterol 112 mg/dL 6 Urinalysis Profile 04/27/2018 [facility] Urine Color Yellow Urine Appearance Clear Urine Specific [place] 1.006 Low 1.010-1.030 Urine pH 6.0 N 5-9 Urine Urobilinogen Negative Negative Urine Ketones Trace Abnormal Negative Urine Protein Negative Negative Urine Leukocytes Trace Abnormal Negative Urine Blood Negative Negative * * Abnormal Negative 7 Urine Nitrite Negative Negative Urine Bilirubin Negative Negative Urine Glucose Negative Negative Urine White Blood Cell Trace(0-5/hpf) Absent Urine Red Blood Cell Trace(0-2/hpf) Absent Urine Bacteria Absent Absent Urine Hyaline Casts Present Abnormal Absent Laboratory test finding 04/27/2018 [facility] Erythrocyte Sed Rate 25 mm/Hr N 0- 40 CBC Auto Diff 04/27/2018 [facility] White Blood Count 6.9 10^3/uL N 3.5-10.8 Red Blood Count 4.48 10^6/uL N 4.00-5.40 Hemoglobin 14.1 g/dL N 12.0-16.0 Hematocrit 42 % N 35-47 Mean Corpuscular Volume 94 fL N 80-97 Mean Corpuscular Hemoglobin 31 pg N 27-31 Mean Corpuscular HGB Conc 33 g/dL N 31-36 Red Cell Distribution Width 13 % N 10.5-15 Platelet Count 225 10^3/uL N 150-450 Mean Platelet Volume 8.7 fL N 7.4-10.4 Abs Neutrophils 4.9 10^3/uL N 1.5-7.7 Abs Lymphocytes 1.3 10^3/uL N 1.0-4.8 Abs Monocytes 0.6 10^3/uL N 0-0.8 Abs Eosinophils 0.1 10^3/uL N 0-0.6 Abs Basophils 0 10^3/uL N 0-0.2 Abs Nucleated RBC 0 10^3/uL Granulocyte % 71.0 % Lymphocyte % 18.9 % Monocyte % 8.4 % Eosinophil % 1.1 % Basophil % 0.6 % Nucleated Red Blood Cells % 0 Laboratory test finding 04/27/2018 [facility] Magnesium 2.3 mg/dL N 1.9-2.7 C Reactive Protein 4.84 mg/L N <8.01 Troponin I 0.00 ng/mL <0.04 8 TSH (Thyroid Stim Horm) 1.54 mcIU/mL N 0.34-5.60 Comp Metabolic Panel 04/27/2018 [facility] Sodium 141 mmol/L N 135-145 Potassium 4.6 mmol/L N 3.5-5.0 Chloride 109 mmol/L N 101-111 Co2 Carbon Dioxide 26 mmol/L N 22-32 Anion Gap 6 mmol/L N 2-11 Glucose 76 mg/dL N 70-100 Blood Urea Nitrogen 24 mg/dL N 6-24 Creatinine 1.00 mg/dL High 0.51-0.95 BUN/Creatinine Ratio 24.0 High 8-20 Calcium 9.5 mg/dL N 8.6-10.3 Total Protein 6.8 g/dL N 6.4-8.9 Albumin 4.0 g/dL N 3.2-5.2 Globulin 2.8 g/dL N 2-4 Albumin/Globulin Ratio 1.4 N 1-3 Total Bilirubin 0.50 mg/dL N 0.2-1.0 Alkaline Phosphatase 95 U/L N 34-104 Alt 12 U/L N 7-52 Ast 26 U/L N 13-39 Egfr Non- 53.0 >60 Egfr 64.1 >60 9 Laboratory test 04/27/2018 [facility] Lactic Acid 0.6 mmol/L N 0.5-2.0 10 finding Comprehensive 02/15/2018 [facility]) Sodium 140 mEq/L 134-149 Metabolic Prof Potassium 5.4 mEq/L 3.6-5.5 Chloride 105 mEq/L 94-112 Carbon Dioxide 24 mEq/L 21-32 Glucose 82 mg/dL 70-105 BUN 16 mg/dL 6-26 Creatinine 0.8 mg/dL 0.6-1.4 BUN/Creat Ratio 20.0 CALC 8.0-36.0 Calcium 9.3 mg/dL 8.6-10.2 Total Protein 6.7 g/dL 6.4-8.3 Albumin 4.5 g/dL 3.8-5.5 Globulin 2.2 g/dL 2.0-4.8 A/G Ratio 2.0 CALC 0.6-2.3 Alk. Phosphatase 103 U/L 30-110 Alt (SGPT) 14 U/L 7-35 Ast (Sgot) 28 U/L 5-34 Total Bilirubin 0.5 mg/dL 0.2-1.3 GFR Non- >60 ml/min/1.73m^ >=60 GFR >60 ml/min/1.73m^ >=60 CBC Electronic Fma 02/15/2018 [facility]) WBC 5.5 x10^3/UL 4.0- 10.0 RBC 4.35 x10^6/UL 3.93-6.00 HGB 13.8 g/dL 12.0-17.0 HCT 41 % 35-50 MCV 94.7 fL 80.0-95.0 MCH 31.7 pg 25.6-32.2 MCHC 33.5 g/dL 32.2-36.0 RDW-CV 13.3 % 11.6-14.4 PLT 231 x10^3/UL 163-400 MPV 11.0 fL 9.4-12.4 Qamar# 3.22 x10^3/UL 1.56-6.13 Lymph# 1.52 x10^3/UL 1.18-3.74 Graham# 0.51 x10^3/UL 0.24-0.82 Eos # 0.2 x10^3/UL 0.0-0.5 Baso # 0.03 x10^3/UL 0.01-0.08 Qamar% 58.8 % 34.0-70.0 Lymph % 27.7 % 20.0-52.0 Graham% 9.3 % 5.0-12.0 Eos% 3.5 % 0.7-7.0 Baso% 0.5 % 0.1-1.2 Laboratory test 02/15/2018 Tal[facility] Leigh([facility]) TSH 1.12 mIU/L 0.50-6.00 finding Ua - Micro (a) 09/16/2017 [facility] Medicine Appearance clear (607)- - Color yellow Glucose, Urine (Fma/CMC/CTX) neg Bilirubin neg Ketones neg SP Grav 1.010 Blood neg PH 5.5 Protein neg Urobil 0.2 Nitrite neg Leukocytes (Fma/CMC/Centrex) trace # Hyaline - /Lpf Granular - /Lpf WBC (a,Centrex) 1-2 # RBC - Mucus - /Lpf Epith rare /Lpf # Bacteria rare /Hpf # Amorphous - /Lpf Crystals, Fluid (Fma/CMC/CTX) - Z#Comments - Urine Culture And 09/16/2017 [facility] [place] Culture SEE RESULT 11 Sensitivities BELOW Urine Culture And 09/04/2017 [facility] [place]rine Culture SEE RESULT 12 Sensitivities BELOW Ua - Micro (a) 09/04/2017 [facility] Medicine Appearance clear (607)- - Color yellow Glucose, Urine (Fma/CMC/CTX) neg Bilirubin neg Ketones neg SP Grav 1.015 Blood neg PH 5.5 Protein neg Urobil 0.2 Nitrite neg Leukocytes (Fma/CMC/Centrex) mod # Hyaline - /Lpf Granular - /Lpf WBC (a,Centrex) 20-25 # RBC 3-5 # Mucus - /Lpf Epith rare /Lpf # Bacteria 2+ /Hpf # Amorphous - /Lpf Crystals, Fluid (Fma/CMC/CTX) - Z#Comments - Laboratory test finding 04/09/2017 [facility] Troponin I 0.00 ng/mL <0.04 1 Troponin-I testing on Plasma Separator Tubes (PST) has a known false positive rate of 0.20-0.40%. All positive troponins reflex immediate secondary confirmatory testing. 2 SEE RESULT BELOW Name: CONCEPCION CARRILLO : [address]: Geraldine Astudillo MD Acct: [id number] Unit: [id number] AGE: 82 Location: [place] [address] Re04/28/18 SEX: F Status: ADM Renee SPEC: [id number] ALCIDES: 04/27/18-[address] [facility] [address]: Donny Coe MD REQ: [id number] RECD: 04/27/18 STATUS: AGA GARCIA DR: Adelina Fonseca MD _ SOURCE: URINE SPDES: ORDERED: Urine Culture Procedure Result Reported Site Urine Culture Final 04/28/18- 1608 ML No Growth (<1,000 CFU/mL) * ML - Main Lab . END OF REPORT DEPARTMENT OF PATHOLOGY, [address] [place] [address] Joni Joshi M.D. Director [facility] # [id number] Desirable: <150 Borderline High: 150-199 High: 200-499 Very High: >500 4 Desirable: <200 Borderline High: 200-239 High: >239 5 Low: <40 Desirable: 40-60 High: >60 6 Desirable: <100 Near Optimal: 100-129 Borderline High: 130-159 High: 160-189 Very High: >189 7 *Ascorbic acid is present which may interfere with detection of blood. 8 Troponin-I testing on Plasma Separator Tubes (PST) has a known false positive rate of 0.20-0.40%. All positive troponins reflex immediate secondary confirmatory testing. 9 Because ethnic data is not always readily available, this report includes an eGFR for both -Americans and non- Americans. The National Kidney Disease Education Program (NKDEP) does not endorse the use of the MDRD equation for patients that are not between the ages of 18 and 70, are , have extremes of body size, muscle mass, or nutritional status, or are non- or non-. According to the National Kidney Foundation, irrespective of diagnosis, the stage of the disease is based on the level of kidney function: Stage Description GFR(mL/min/1.73 m(2)) 1 Kidney damage with normal or decreased GFR 90 2 Kidney damage with mild decrease in GFR 60-89 3 Moderate decrease in GFR 30-59 4 Severe decrease in GFR 15-29 5 Kidney failure <15 (or dialysis) 10 [facility] Severe Sepsis and Septic Shock Management Bundle Measure requires all lactic acids initially measuring >2.0 mmol/L be repeated. 11 SEE RESULT BELOW Name: CONCEPCION CARRILLO : [address]: Poonam Giron NP Acct: [id number] Unit: [id number] AGE: 82 Location: [facility] Re09/16/17 SEX: F Status: REG REF SPEC: [id number] ALCIDES: 09/16/17-[address] [facility] [address]: Poonam Giron NP REQ: [id number] RECD: 09/16/17 STATUS: COMP _ SOURCE: URINE SPDESC: ORDERED: Urine Culture COMMENTS: [id number] 1urine bernard top tube Procedure Result Reported Site Urine Culture Final 09/18/17- 09 ML No Growth (<1,000 CFU/mL) * ML - Main Lab . END OF REPORT DEPARTMENT OF PATHOLOGY, [address] [place] [address] Joni Joshi M.D. Director [facility] # [id number] 12 SEE RESULT BELOW Name: CONCEPCION CARRILLO E : [address]: Poonam Giron NP Acct: [id number] Unit: [id number] AGE: 82 Location: [facility] Re09/04/17 SEX: F Status: REG REF SPEC: [id number] ALCIDES: 09/04/17-[address] [facility] [address]: Poonam Giron NP REQ: [id number] RECD: 09/04/17 STATUS: COMP _ SOURCE: URINE SPDESC: ORDERED: Urine Culture COMMENTS: 1urine vacutainer [id number] Urine Source: Random Procedure Result Reported Site Urine Culture Final 09/06/17- 4560 ML No growth of clinically significant organisms * ML - Main Lab . END OF REPORT DEPARTMENT OF PATHOLOGY, [address] [place] [address] Joni Joshi M.D. Director [facility] # [id number] Procedures Date Code Description Status 09/22/2018 58967 Electrocardiogram Complete Completed 04/27/2018 50969 Electrocardiogram Complete Completed 04/19/2018 98632 Dxa Bone Density Study One Or More Sites Axial Skeleton Completed 01/13/2018 82720485 Colonoscopy Completed 12/08/2017 09170 Electrocardiogram Complete Completed Encounters Type Date Location Provider Dx Diagnosis Office Visit 10/08/2018 [facility] Office Carrie Proctor R14.0 Abdominal distension 1:15p DUANE Soriano (gaseous) Office Visit 09/29/2018 [facility] Office Adelina Fonseca, I10 Essential ( primary) 10:40a M.D. hypertension F41.9 Anxiety disorder, unspecified H81.13 Benign paroxysmal vertigo, bilateral N81.89 Other female genital prolapse Office Visit 09/22/2018 1:45p [facility] Office Jesusita Albarado I95.1 Orthostatic [place] hypotension I95.1 Orthostatic hypotension I10 Essential (primary) hypertension H81.13 Benign paroxysmal vertigo, bilateral Office Visit 05/31/2018 1:40p Main Office Adelina Fonseca I10 Essential ( primary) M.D. hypertension F41.9 Anxiety disorder, unspecified R42 Dizziness and giddiness Office Visit 05/03/2018 1:00p Main Office Adelina Fonseca, I10 Essential ( primary) M.D. hypertension R42 Dizziness and giddiness F41.9 Anxiety disorder, unspecified Office Visit 04/27/2018 1:00p [facility] Office Adelina Fonseca, R06.02 Shortness of M.D. breath R42 Dizziness and giddiness I10 Essential (primary) hypertension F41.9 Anxiety disorder, unspecified Office Visit 03/05/2018 11:30a Main Office Jackson Marks I10 Essential MD Alessio (primary) hypertension Office Visit 03/02/2018 2:00p [facility] Adelina Fonseca I10 Essential M.D. (primary) hypertension Office Visit 02/15/2018 1:30p [facility] Meera Camacho I10 Essential Afnp-C (primary) hypertension F41.1 Generalized anxiety disorder Office Visit 12/08/2017 [facility] Adelina Fonseca, K21.9 Gastro-esophageal 10:00a Office M.D. reflux disease without esophagitis M54.9 Dorsalgia, unspecified I10 Essential (primary) hypertension Office Visit 10/29/2017 10:10a Main Office Adelina Fonseca M.D. 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 K21.9 Gastro -esophageal reflux disease without esophagitis F41.1 Generalized anxiety disorder I10 Essential (primary) hypertension Z85.528 Personal history of other malignant neoplasm of kidney Office Visit 03/27/2017 4:30p [facility] Carrie Proctor R19.5 Other fecal Office DUANE Soriano abnormalities R10.13 Epigastric pain Office Visit 03/23/2017 6:50p Main Office Adelina Fonseca F41.1 Generalized tremaine Ham disorder Plan of Treatment Future Appointment(s):12/22/2018 9:50 am - Adelina Fonseca M.D. at [facility]03/22/2019 1:40 pm - Adelina Fonseca M.D. at [facility] [id number]/24/2018 - Adelina Fonseca M.D.I10 Essential (primary) pllphtvwlxlwP69.9 Anxiety disorder, bzllihawixwE23.9 Gastro-esophageal reflux disease without qljqhddxzrlS17.6 Pain in thoracic spineNew Medication:Lidocaine 5 % - apply 1 patch once daily 12 hours on and 12 hours offAllComments:Medication Management Patient Understands medications she's taking? Yes No Are there Barriers to Adherence? Yes No Has the patient been asked about herbal supplements and therapies, and OTC meds? Yes No
--- OUTSIDE RECORDS SUMMARY | 2018-12-13 12:09 | XMS REPORT | Continuity of Care Document ---
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 Obstructive sleep apnea syndrome Aye Pina DNP RN, Onset: 11/02/2018 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 Family History Date Family Member(s) Observation Comments General Heart Disease General Hypertension General Stroke General vulvar cancer General Thyroid Disease Father due to Heart problems () Mother due to MT () Siblings 7 Social History Type Date Description Comments Sex Unknown Lives With Alone Occupation Retired ETOH Use Denies alcohol use Tobacco Use Start: Unknown Patient has never smoked Recreational Drug Use Never Used Drugs Smoking Status Reviewed: 11/17/18 Patient has never smoked Exercise Type/Frequency Does not exercise Allergies, Adverse Reactions, Alerts Active Allergies Reaction Severity Comments Date Bactrim 06/14/2014 Medications Active Medications SIG Qnty Indications Ordering Date Provider Omeprazole 1 capsule 30-60 30caps K21.9 Aye Pina, 11/17/2018 20mg minutes prior to DNP, RN, 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 Capsules DR dinner Alfibercept to left eye at night Vickie Kwong 05/20/2016 2mg Ellen, DUANE Buspirone HCL 1/2 tab per day Unknown 5mg Tablets Amlodipine Besylate 1 by mouth every day Unknown 5mg Tablets Preser Vision 1 tab by mouth at Unknown Areds2 Multi breakfast, 1 tab by Vitamin 300 Vit D mouth at dinner Sodium Chloride5% both eyes as needed Unknown Premarin use 1 0.5 gram Unknown 0.625mg/GM applicator 1x week Cream Meclizine HCL 1 tab by mouth every Unknown 12 hours as needed 12.5mg Tablets Vitamin D3 High 1 by mouth every day Unknown Potency 1000Unit Capsules Daily Multi 2 by mouth every day Unknown Preservision Tablets Calcium + D Calcium 600mg and D Unknown 800iu daily Amlodipine Besylate 1 tabs by mouth Unknown everyday 2.5mg Tablets History Medications Oxycodone-Acetaminophen 1 Tab Q6H prn 12tabs Vickie Kwong 05/20/2016 - 2.5-325mg Tablets Pain DAUNE Hughes 06/30/2016 [place] 1-2 by mouth 40tabs Luis Quezada, 10/23/2015 - 5-325mg Tablets every 4 to 6 M.D. Unknown hours as needed Aspirin 1 by mouth Unknown - 81mg Tablets every day Unknown Cholecalciferol as directed Unknown - Capsules Unknown Omeprazole as directed Unknown - 20mg Capsules Unknown Mirtazapine 1 by mouth at Unknown - 30mg Tablets bedtime 10/22/2015 Diclofenac Sodium Unknown - 1% Gel Unknown Joint Support three times a Unknown - Capsules day 07/12/2018 Vital Signs Date Vital Result Comment 11/17/2018 10:38am Height 63 inches 5'3" Weight 132.00 lb Heart Rate 70 /min BP Systolic Sitting 130 mmHg Lue regular cuff BP Diastolic Sitting 76 mmHg Lue regular cuff Respiratory Rate 12 /min O2 % BldC Oximetry 98 % BMI (Body Mass Index) 23.4 kg/m2 11/02/2018 11:19am Height 63 inches 5'3" Weight 132.50 lb Heart Rate 72 /min BP Systolic Sitting 132 mmHg Lue regular cuff BP Diastolic Sitting 88 mmHg Lue regular cuff Respiratory Rate 12 /min O2 % BldC Oximetry 98 % BMI (Body Mass Index) 23.5 kg/m2 09/13/2018 11:21am Height 63 inches 5'3" Weight 137.00 lb Heart Rate 68 /min BP Systolic Sitting 142 mmHg BP Diastolic Sitting 80 mmHg Respiratory Rate 12 /min O2 % BldC Oximetry 97 % BMI (Body Mass Index) 24.3 kg/m2 07/12/2018 9:47am Height 63 inches 5'3" Weight 134.00 lb Heart Rate 76 /min BP Systolic Sitting 136 mmHg Rue regular cuff BP Diastolic Sitting 76 mmHg Rue regular cuff Respiratory Rate 16 /min O2 % BldC Oximetry 96 % BMI (Body Mass Index) 23.7 kg/m2 05/27/2018 7:40am Height 63 inches 5'3" Weight 136.38 lb Heart Rate 80 /min BP Systolic Sitting 158 mmHg Lue regular cuff BP Diastolic Sitting 90 mmHg Lue regular cuff Respiratory Rate 16 /min O2 % BldC Oximetry 97 % BMI (Body Mass Index) 24.2 kg/m2 Neck Circumference in inches 12.50 07/16/2016 1:28pm Heart Rate 78 /min Respiratory Rate 18 /min Body Temperature 98.2 F 07/01/2016 10:56am Height 63 inches 5'3" Weight 130.00 lb Heart Rate 78 /min BP Systolic 120 mmHg BP Diastolic 82 mmHg Respiratory Rate 16 /min Body Temperature 97.5 F BMI (Body Mass Index) 23.0 kg/m2 06/30/2016 9:59am Height 63 inches 5'3" Weight 130.00 lb Heart Rate 72 /min BP Systolic 124 mmHg BP Diastolic 78 mmHg Respiratory Rate 18 /min Body Temperature 97.2 F BMI (Body Mass Index) 23.0 kg/m2 05/20/2016 1:09pm Height 63 inches 5'3" Weight 135.00 lb Heart Rate 72 /min BP Systolic 138 mmHg BP Diastolic 80 mmHg Respiratory Rate 18 /min Body Temperature 98.7 F BMI (Body Mass Index) 23.9 kg/m2 05/07/2016 2:01pm Height 63 inches 5'3" Weight 135.00 lb Heart Rate 74 /min BP Systolic Sitting 144 mmHg BP Diastolic Sitting 70 mmHg Respiratory Rate 18 /min BMI (Body Mass Index) 23.9 kg/m2 02/07/2016 11:20am Height 63 inches 5'3" Weight 135.00 lb Respiratory Rate 16 /min Pain Level 0 BMI (Body Mass Index) 23.9 kg/m2 01/03/2016 11:36am Height 63 inches 5'3" Weight 135.00 lb Pain Level 0 BMI (Body Mass Index) 23.9 kg/m2 11/29/2015 11:50am Height 63 inches 5'3" Weight 135.00 lb Pain Level 4 BMI (Body Mass Index) 23.9 kg/m2 11/15/2015 11:42am Height 63 inches 5'3" Weight 135.00 lb Heart Rate 60 /min Respiratory Rate 16 /min Pain Level 4 BMI (Body Mass Index) 23.9 kg/m2 11/08/2015 10:56am Height 63 inches 5'3" Weight 135.00 lb Heart Rate 68 /min Respiratory Rate 16 /min Pain Level 0 BMI (Body Mass Index) 23.9 kg/m2 11/01/2015 9:42am Height 63 inches 5'3" Weight 135.00 lb BMI (Body Mass Index) 23.9 kg/m2 10/23/2015 11:27am Height 63 inches 5'3" Weight 135.00 lb Heart Rate 60 /min BP Systolic 137 mmHg BP Diastolic 66 mmHg BMI (Body Mass Index) 23.9 kg/m2 09/14/2014 1:28pm Height 63 inches 5'3" Weight 140.00 lb Heart Rate 75 /min BP Systolic 153 mmHg BP Diastolic 85 mmHg Pain Level 0 BMI (Body Mass Index) 24.8 kg/m2 08/09/2014 2:55pm Height 63 inches 5'3" Weight 140.00 lb Pain Level 0 BMI (Body Mass Index) 24.8 kg/m2 07/12/2014 2:09pm Height 63 inches 5'3" Weight 140.00 lb Heart Rate 69 /min BP Systolic 153 mmHg BP Diastolic 79 mmHg BMI (Body Mass Index) 24.8 kg/m2 Results Test Date Facility Test Result H/L Range Note Laboratory test 07/08/2016 [facility] Surgical SEE RESULT [address] [place] [address] [phone] Creatinine 04/09/2016 [facility] Creatinine 1.02 mg/dL High 0.51-0.[address] [place] [address] [phone] Egfr Non- 52.0 N >60 Egfr 66.9 N >60 2 Laboratory test 04/09/2016 [facility] Blood Urea 30 mg/dL High 6-[address] [place] [address] [phone] 1 SEE RESULT BELOW Name: GERARDOCONCEPCION : [address]: Lazarus Estrada MD Acct: [id number] Unit: [id number] AGE: 81 Location: [place] [address] Re07/08/16 SEX: F Status: ADM Renee SPEC: [id number] ALCIDES: 07/08/16-1230 [facility] DR: Lazarus Estrada MD REQ: [id number] RECD: 07/08/16-0476 STATUS: SOUT _ ORDERED: LEVEL III FINAL DIAGNOSIS Gallbladder, cholecystectomy: -- Chronic cholecystitis. -- Cholelithiasis. PRE-OPERATIVE DIAGNOSIS Calculus of gallbladder GROSS DESCRIPTION The specimen is received in formalin labeled, Gallbladder and Contents, and consists of a 10.8 x 4.0 x 3.8 cm intact gallbladder. The serosa is glistening smooth reardon- pink. The lumen contains abundant pearly reardon smooth choleliths ranging from 0.4 cm to 1.2 cm in greatest dimension admixed with abundant green viscid bile. The mucosa is reticulated reardon and the wall thickness averages 0.1 cm. Specialty Manufacturing Supervisor sections, one cassette. Signed (signature on file) Valerie Gutiérrez MD 1153 END OF REPORT * ML=Testing performed at Main Lab DEPARTMENT OF PATHOLOGY, [address] [place] [address] Joni Joshi M.D. Director [facility] # [id number] 2 Because ethnic data is not always readily [...] 15-29 5 Kidney failure <15 (or dialysis) Procedures Date Code Description Status 06/22/2018 88637 Polysomnography Sleep Staging 4+ Parameters Completed 04/28/2018 21245 ECHO Transthorasic Realtime 2D W Doppler & Color Flow Hosp Completed 04/10/2017 19200 Treadmill Interp/Report Only Completed 04/10/2017 10678 Stress Test Supervsn W/Out I/R Completed 07/08/2016 33429 Laparoscopy Cholecystectomy Completed 07/08/2016 76713 Laparoscopy Cholecystectomy Completed 11/15/2015 37062 Short Arm Cast Application Completed 10/23/2015 58283 Closed Treatment Distal Radial FX W/Manipulation Completed 06/14/2014 67976 Rad Exam; Foot Comp Completed Encounters Type Date Location Provider Dx Diagnosis Office Visit 11/02/2018 Pulmonology And Aye Pina G47.33 Obstructive sleep 11:15a [facility] FNP-BC apnea (adult) [facility] (pediatric) Office Visit 09/13/2018 Pulmonology And Aye Pina G47.33 Obstructive sleep 11:15a [facility] FNP-BC apnea (adult) [facility] (pediatric) Office Visit 07/12/2018 Pulmonology And Aye Pina G47.33 Obstructive sleep 9:45a [facility] FNP-BC apnea (adult) [facility] (pediatric) Z68.23 Body mass index (BMI) 23.0-23.9, adult Office Visit 05/27/2018 8:00a Pulmonology And Sleep Evelin James, R06.83 [facility] R53.83 Other fatigue Office Visit 04/28/2018 10:39a [facility] Cony Mosqueda DO R53.1 Weakness Assoc,pc Hospitalists I95.1 Orthostatic hypotension Office Visit 04/10/2017 2:48p [facility] Darin R07.9 Chest pain, Assoc,pc Anup Garcia. unspecified Hospitalists K21.9 Gastro-esophageal reflux disease without esophagitis F41.9 Anxiety disorder, unspecified I10 Essential (primary) hypertension Office Visit 04/09/2017 [facility] Yovanny R07.9 Chest pain, 2:47p Assoc,pc Wesley, N.P. unspecified Hospitalists K21.9 Gastro-esophageal reflux disease without esophagitis F41.9 Anxiety disorder, unspecified I10 Essential (primary) hypertension Office Visit 06/30/2016 Surgical Lazarus Estrada, K80.20 Calculus of 10:00a [facility] gallbladder w/o [place] cholecystitis w/o obstruction Office Visit 05/07/2016 Surgical Lazarus Estrada, K80.20 Calculus of 2:00p [facility] gallbladder w/o [facility] cholecystitis w/o obstruction Office Visit 02/07/2016 Orthopedic Edd Means, M18.11 Unil primary 11:30a Services Of osteoarth of first C.M.A. carpometacarp joint, r hand S52.501D Unsp fx the lower end r rad, subs for clos fx w routn heal Office Visit 09/14/2014 1:15p Orthopedic Tina Mckeon, 825.25 FX Other Bones Services Of M.D. Metatarsal C.M.A. Bone(S) Closed V54.19 Aftercare For Healing Traumatic Fracture Of Other Bone Office Visit 08/09/2014 2:30p Orthopedic Tina Mckeon, 729.5 Pain In Limb Services [facility] M[facility]D. C.M.A. Office Visit 07/12/2014 2:00p Orthopedic Tina Mckeon, 825.25 FX Other Bones Services Of M.Roxy Metatarsal C.M.A. Bone(S) Closed Office Visit 06/14/2014 2:30p Orthopedic Tina Mckeon, 719.47 Pain Joint Ankle Services Of M.DAnjali & Foot C.M.A. Plan of Treatment Future Appointment(s):01/18/2019 1:45 pm - Aye Pina DNP, RN, SENIOR SYSTEMS DEVELOPER- at [facility]12/28/2018 1:45 pm - Aye Pina DNP, RN, 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 at [facility]11/17/2018 - Aye Pina DNP, RN, 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G47.33 Obstructive sleep apnea (adult) (pediatric)New Orders:Sleep Study Cpap, Ordered: 11/17/18Sleep-Homecare, Ordered: Follow up:2 monthsRecommendations:Continue PAP device, Benefitting and compliant with treatment. Cleaning Wipe off mask daily (baby wipe-no scent, or warm water) Clean mask, tubing, filter, and water chamber weekly in mild no scent dish soap and water. Hang to dry. If you have any sleepiness while driving you MUST avoid operating a vehicle or machinery. If you have difficulty with your equipment, or need to replace your mask or hoses, please contact your homecare agency. A weight change of 20 pounds or more may have an effect onyour equipment; if you are experiencing problems please call for an appointment. If you have any further questions, please call the [facility] at .R36.9 Gastro-esophageal reflux disease without esophagitisNew Medication: Omeprazole 20 mg - 1 capsule 30-60 minutes prior to dinnerRecommendations:See primary care to discuss the upper chest discomfort in AM. The symptoms are suspicious for nocturnal reflux, however due to past GI problems you need to discuss with your primary care. Restart omeprazole 20 mg 30-60 minutes prior to dinner. It is Over-the counter, prescription sent to [facility]'s pharmacy.
[2018-12-13] MEDS ORDERED: NS 0.9% 1000 ML** 1,000 ML IV ONE (14:17)
[2018-12-13 14:51] LABS: ABS Lymphocytes 1.2 10^3/ul (1.0-4.8); ABS Monocytes 0.5 10^3/ul (0-0.8); ABS Neutrophils 4.9 10^3/ul (1.5-7.7); Eosinophil % 0.7 %; Hematocrit 42 % (35-47); Hemoglobin 14.3 g/dL (12.0-16.0); Lymphocyte % 18.3 %; Mean Corpuscular HGB Conc 34 g/dL (31-36); Mean Corpuscular Hemoglobin 33 pg (27-31); Mean Corpuscular Volume 95 fL (80-97); Mean Platelet Volume 8.7 fL (7.4-10.4); Nucleated Red Blood Cells % 0.1; Platelet Count 208 10^3/uL (150-450); Red Blood Count 4.39 10^6 /uL (3.70-4.87); Red Cell Distribution Width 14 % (10-15); White Blood Count 6.7 10^3/uL (3.5-10.8)
--- NOTE | 2018-12-13 14:54 | UC ---
Psychiatric Complaint HPI - HPI Summary HPI Summary: This patient is a 83 year old F [facility] accompanied by a female textile artist with a chief complaint of anxiety since earlier today. Pt states she was at her eye doctor's office for a scar tissue lasering appointment when she suddenly felt anxious. She notes she could not stop shaking and could not go through with the appointment due to her anxiety and shaking. Patient reports feeling sick to her stomach, gas in her upper ABD area, and hot and tense face. Dr. Fonseca is her PCP. Pt takes acetaminophen for back pain and anxiety medication. The patient rates the pain 0/10 in severity. Symptoms aggravated by nothing. Symptoms alleviated by nothing. - History Of Current Complaint Chief Complaint: EDGeneral Stated Complaint: FEVER, VOMITING , Time Seen by Provider: 12/13/18 14:00 Hx Obtained From: Patient ?: No Onset/Duration: Sudden Onset, Lasting Hours - since this morning Timing: Hours - since this morning Severity Initially: Severe Severity Currently: Moderate Character: Anxious - pt could not stop shaking Aggravating Factor(s): Nothing Alleviating Factor(s): Nothing - Allergies/Home Medications Allergies/Adverse Reactions: Allergies Allergy/AdvReac Type Severity Reaction Status Date / Time sulfamethoxazole AdvReac Heartburn Verified 04/27/18 15:16 [From Bactrim] trimethoprim [From Bactrim] AdvReac Heartburn Verified 04/27/18 15:16 Home Medications: Home Medications Acetaminophen [Acetaminophen Extra Strength] 1,000 mg PO TID PRN 12/13/18 [ History Confirmed 12/13/18] Aflibercept [Eylea] 2 mg INJ Q60D 12/13/18 [History Confirmed 12/13/18] Calcium Carbonate [Super Calcium] 600 mg PO DAILY 12/13/18 [History Confirmed ] Cholecalciferol (Vitamin D3) [Vitamin D3] 1,000 unit PO DAILY 12/13/18 [History Confirmed 12/13/18] Lidocaine PATCH 5%* [Lidoderm 5% Patch*] 1 patch TRANSDERM DAILY 12/13/18 [ History Confirmed 12/13/18] Omeprazole CAP (NF) [Prilosec CAP* 20 MG] 20 mg PO DAILY 12/13/18 [History Confirmed 12/13/18] Sodium Chloride 5% OPTH.BERNY* [Lupe 128 Opth 5% OPTH.SOLl*] 1 drop BOTH EYES DAILY 12/13/18 [History Confirmed 12/13/18] amLODIPine TAB* [Norvasc 5 mg TAB*] 2.5 mg PO DAILY 12/13/18 [History Confirmed 12/13/18] amLODIPine TAB* [Norvasc 5 mg TAB*] 5 mg PO DAILY 12/13/18 [History Confirmed ] busPIRone TAB* [Buspar TAB*] 2.5 - 5 mg PO BID PRN 12/13/18 [History Confirmed 12/13/18] PMH/Surg Hx/FS Hx/Imm Hx Previously Healthy: No Psychological History: Anxiety - Surgical History Surgical History: Yes Surgery Procedure, Year, and Place: LEFT ROTATOR CUFF. LEFT ELBOW. TUBAL LIGATION. 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 CHOLECYSTECTOMY 07/11 - Family History Known Family History: Positive: None - REVIEWED & NONCONTRIBUTORY, Cardiac Disease, Hypertension Family History: Brother: CVA - Social History Alcohol Use: None Substance Use Type: None Smoking Status (MU): Never Smoked Tobacco Have You Smoked in the Last Year: No - Immunization History Most Recent Influenza Vaccination: 2015 Most Recent Tetanus Shot: unk Most Recent Pneumonia Vaccination: not sure of year Review of Systems All Other Systems Reviewed And Are Negative: Yes Constitutional: Positive: Other - positive - hot and tense face. Gastrointestinal: Positive: Abdominal Pain - pt feels sick to her stomach, gas in her upper ABD area Psychological: Positive: Anxious - with tremors Physical Exam - Summary Physical Exam Summary: Appearance: The patient is well-nourished in no acute distress and in no acute pain. Skin: The skin is warm and dry and skin color reflects adequate perfusion. HEENT: The head is normocephalic and atraumatic. The pupils are equal and reactive. The conjunctivae are clear and without drainage. Nares are patent and without drainage. Mouth reveals moist mucous membranes and the throat is without erythema and exudate. The external ears are intact. The ear canals are patent and without drainage. The tympanic membranes are intact. Neck: The neck is supple with full range of motion and non-tender. There are no carotid bruits. There is no neck vein distension. Respiratory: Chest is non-tender. Lungs are clear to auscultation and breath sounds are symmetrical and equal. Cardiovascular: Heart is regular rate and rhythm. There is no murmur or rub auscultated. There is no peripheral edema and pulses are symmetrical and equal. Abdomen: The abdomen is soft and non-tender. There are normal bowel sounds heard in all four quadrants and there is no organomegaly palpated. Musculoskeletal: There is no back tenderness noted. Extremities are non-tender with full range of motion. There is good capillary refill. There is no peripheral edema or calf tenderness elicited. Neurological: Patient is alert and oriented to person, place and time. The patient has symmetrical motor strength in all four extremities. Cranial nerves are grossly intact. Deep tendon reflexes are symmetrical and equal in all four extremities. Psychiatric: The patient is anxious. The patient has an appropriate affect and does not exhibit depression. Triage Information Reviewed: Yes Vital Signs: Initial Vital Signs Temp 98.7 F 12/13/18 11:54 Pulse 74 12/13/18 11:54 Resp 18 12/13/18 11:54 BP 170/83 12/13/18 11:54 Pulse Ox 100 12/13/18 11:54 Vital Signs Reviewed: Yes Diagnostics - Radiology CXR Radiology Interpretation Completed By: Radiologist Summary of Radiographic Findings: IMPRESSION: NO EVIDENCE FOR ACTIVE CARDIOPULMONARY DISEASE. These findings were reviewed by Dr. Fernando. - EKG Cardiac Rate: NL - 61 BPM Cardiac Rhythm: Sinus: Normal Ectopy: None ST Segment: Normal Summary of EKG Findings: EKG at 15-7 shows normal sinus rhythm, normal ST, no ectopy, no STEMI Psych Complaint Course/Dx - Course Course Of Treatment: Ms. Becker was not an eye doctor appointment earlier today when she began to feel anxious and had the feeling that she might faint. She was nontoxic in appearance with stable vitals but did look anxious. She was kept on a monitor while labs including a delayed troponin and EKG were obtained. She was given Xanax and did improve symptomatically. I'm not sure if this is all anxiety or this is a secondary anxiety but I don't find anything dangerous occurring. I recommended a short course of an anxiolytic and follow-up. She was given Xanax as a prescription and since she is on BuSpar recommended she hold that. - Differential Dx/Diagnosis Provider Diagnosis: Near syncope, Anxiety Discharge - Sign-Out/Discharge Documenting (check all that apply): Patient Departure - discharge Patient Received Moderate/Deep Sedation with Procedure: No - Discharge Plan Condition: Stable Disposition: HOME Prescriptions: ALPRAZolam TAB* [Xanax TAB*] 0.25 mg PO Q6H PRN #20 tab MDD 3 PRN Reason: Agitation Patient Education Materials: Near Syncope (ED) Referrals: Adelina Fonseca MD [Primary Care Provider] - 2 Days Additional Instructions: Stop taking Buspar. Follow up with your primary care provider within 2-3 days. Return to the ED for any new or worsening symptoms. - Billing Disposition and Condition Condition: STABLE Disposition: Home - Attestation Statements Document Initiated by Scribe: Yes Documenting Scribe: Emmanuel River Provider For Whom Scribe is Documenting (Include Credential): Dr. Donny Fernando MD Scribe Attestation: Emmanuel Krueger scribed for Dr. Donny Fernando MD on 12/13/18 at 2046. Scribe Documentation Reviewed: Yes Provider Attestation: The documentation as recorded by the Emmanuel blunt accurately reflects the service I personally performed and the decisions made by me, Dr. Donny Fernando MD Status of Scribe Document: Viewed
[2018-12-13 15:07] LABS: Albumin 4.2 g/dL (3.2-5.2); Albumin/Globulin Ratio 1.5 (1-3); BUN/Creatinine Ratio 20.3 (8-20); Calcium 9.5 mg/dL (8.6-10.3); EGFR African American 83.9 (>60); EGFR Non-African American 69.3 (>60); Globulin 2.8 g/dL (2-4); Magnesium 2.4 mg/dL (1.9-2.7); Potassium 4.9 mmol/L (3.5-5.0); Total Bilirubin 0.5 mg/dL (0.2-1.0)
[2018-12-13 15:12] LABS: INR 0.9 (0.82-1.09)
[2018-12-13 15:27] LABS: TSH (Thyroid Stimulating Horm) 1.11 mcIU/mL (0.34-5.60)
[2018-12-13 16:55] LABS: Urine Appearance Clear; Urine Bilirubin Negative (Negative); Urine Blood Negative (Negative); Urine Color Colorless; Urine Glucose Negative (Negative); Urine Ketones Negative (Negative); Urine Nitrite Negative (Negative); Urine Protein Negative (Negative); Urine Specific Gravity 1.002 (1.010-1.030); Urine Urobilinogen Negative (Negative)
[2018-12-13] MEDS ORDERED: ALPRAZolam TAB* 0.5 MG PO ONE (17:40)
[2018-12-13 19:28] VITALS: BP 171/79
== END 2018-12-13 19:26 | disposition home or self-care (01) ==
LOC: ED 11:53
DX: F41.9 Anxiety disorder, unspecified (principal); R55 Syncope and collapse; Z88.1 Allergy status to other antibiotic agents; Z88.2 Allergy status to sulfonamides; Z79.899 Other long term (current) drug therapy
CPT/HCPCS: 36415; 71045; 80053; 81003; 83605; 83735; 84443; 84484; 85025; 85610; 93005; 96360; 96361; 99283; A9270-GY

== ENCOUNTER 2019-02-20 13:37 | Emergency (ER) | payer MEDICARE ==
--- OUTSIDE RECORDS SUMMARY | 2019-02-20 14:51 | XMS REPORT | Continuity of Care Document ---
:1935 External Reference #:[id number] Author Name Andreas Hameed Address [address] [facility] [facility] [place] [address] Care Team Providers Name Role Phone Adelina Fonseca M.D. - Family Medicine Care Team Information Storm Sash Maker Unavailable [facility] Sleep Clinic - Sleep Disorder Care Team Information Storm Sash Maker [phone] Diagnostic [facility] Emergency Room - Emergency Care Care Team Information Storm Sash Maker [phone] Problems Active Problems Provider Date Gastroesophageal reflux disease Adelina Fonseca M.D. Onset: 04/27/2017 Generalized anxiety disorder Adelina Fonseca M.D. Onset: 04/27/2017 Essential hypertension Adelina Fonseca M.D. Onset: 04/27/2017 History of malignant neoplasm of kidney Adelina Fonseca M.D. Onset: 04/27/2017 Anxiety state Adelina Fonseca M.D. Onset: 03/15/2018 Osteoporosis Adelina Fonseca M.D. Onset: 03/15/2018 Obstructive sleep apnea syndrome Adelina Fonseca M.D. Onset: 07/14/2018 Social History Type Date Description Comments Sex Unknown Tobacco Use Start: Unknown Nonsmoker ETOH Use Denies alcohol use Tobacco Use Start: Unknown Patient has never smoked Smoking Status Reviewed: 03/15/18 Patient has never smoked Exercise Type/Frequency Exercises sporadically Allergies, Adverse Reactions, Alerts Active Allergies Reaction Severity Comments Date Bactrim 03/23/2017 Medications Active Medications SIG Qnty Indications Ordering Date Provider Hydroxyzine HCL 1-2 po qhs prn 60tabs Meera 02/07/2019 10mg [place], Afnp-C Tablets Buspirone HCL 1 po bid 60tabs Meera 02/07/2019 15mg [place], Afnp-C Tablets Amlodipine Besylate take with your 5 90tabs I95.1 [facility], 09/22/2018 mg tablets to M.D. 2.5mg Tablets total 7.5 mg nightly. Amlodipine Besylate 1 by mouth every 90tabs [facility], 04/29/2018 5mg day M.D. Tablets Alprazolam 1 tab by mouth Unknown 0.25mg q6hrs as needed Tablets Acetaminophen Extra 2 tabs by mouth [...] then two times weekly ongoing History Medications Buspirone HCL 1 tab twice a 60tabs F41.9 [facility], 12/22/2018 - 10mg day M.D. 02/07/2019 Tablets Lidocaine apply 1 patch 30units M54.6 [facility], 11/24/2018 - 5% once daily 12 M.D. 12/22/2018 Patches hours on and 12 hours off Buspirone HCL 1/2-1 tab by 60tabs F41.9 [facility], 09/29/2018 - 5mg mouth twice a M.D. 12/22/2018 Tablets day as needed Immunizations CPT Code Status Date Vaccine Lot # [id number] Given 03/27/2018 High-Dose, Influenza Virus Vacccine-fluzone 65 and [id number] older Vital Signs Date Vital Result Comment 02/07/2019 4:15pm BP Systolic 132 mmHg BP Diastolic 84 mmHg Heart Rate 80 /min Body Temperature 98.3 F Respiratory Rate 16 /min Height 62.75 inches 5'2.75" Weight 134.00 lb BMI (Body Mass Index) 23.9 kg/m2 12/22/2018 9:54am BP Systolic 140 mmHg BP Diastolic 80 mmHg Heart Rate 74 /min Body Temperature 97.7 F Respiratory Rate 16 /min Height 62.75 inches 5'2.75" Weight 133.00 lb BMI (Body Mass Index) 23.7 kg/m2 Results Test Date Facility Test Result H/L Range Note Laboratory test 12/13/2018 [facility] Troponin I 0.00 ng/mL <0.04 1 finding Inr/Protime 12/13/2018 [facility] Inr 0.90 Normal 0.82-1.09 2 Laboratory test 12/13/2018 [facility] Lactic Acid 0.5 mmol/L Normal 0.5-2.0 3 finding CBC Auto Diff 12/13/2018 [facility] White Blood 6.7 10^3/uL Normal 3.5-10.8 Count Red Blood Count 4.39 10^6/uL Normal 3.70-4.87 Hemoglobin 14.3 g/dL Normal 12.0-16.0 Hematocrit 42 % Normal 35-47 Mean Corpuscular Volume 95 fL Normal 80-97 Mean Corpuscular Hemoglobin 33 pg High 27-31 Mean Corpuscular HGB Conc 34 g/dL Normal 31-36 Red Cell Distribution Width 14 % Normal 10-15 Platelet Count 208 10^3/uL Normal 150-450 Mean Platelet Volume 8.7 fL Normal 7.4-10.4 Abs Neutrophils 4.9 10^3/uL Normal 1.5-7.7 Abs Lymphocytes 1.2 10^3/uL Normal 1.0-4.8 Abs Monocytes 0.5 10^3/uL Normal 0-0.8 Abs Eosinophils 0.0 10^3/uL Normal 0-0.6 Abs Basophils 0.0 10^3/uL Normal 0-0.2 Abs Nucleated RBC 0.0 10^3/uL Granulocyte % 72.9 % Lymphocyte % 18.3 % Monocyte % 7.7 % Eosinophil % 0.7 % Basophil % 0.4 % Nucleated Red Blood Cells % 0.1 Comp Metabolic Panel 12/13/2018 [facility] Sodium 139 mmol/L Normal 135-145 Potassium 4.9 mmol/L Normal 3.5-5.0 Chloride 108 mmol/L Normal 101-111 Co2 Carbon Dioxide 25 mmol/L Normal 22-32 Anion Gap 6 mmol/L Normal 2-11 Glucose 82 mg/dL Normal 70-100 Blood Urea Nitrogen 16 mg/dL Normal 6-24 Creatinine 0.79 mg/dL Normal 0.51-0.95 BUN/Creatinine Ratio 20.3 High 8-20 Calcium 9.5 mg/dL Normal 8.6-10.3 Total Protein 7.0 g/dL Normal 6.4-8.9 Albumin 4.2 g/dL Normal 3.2-5.2 Globulin 2.8 g/dL Normal 2-4 Albumin/Globulin Ratio 1.5 Normal 1-3 Total Bilirubin 0.50 mg/dL Normal 0.2-1.0 Alkaline Phosphatase 92 U/L Normal 34-104 Alt 13 U/L Normal 7-52 Ast 23 U/L Normal 13-39 Egfr Non- 69.3 >60 Egfr 83.9 >60 4 Laboratory test finding 12/13/2018 [facility] Magnesium 2.4 mg/dL Normal 1.9- 2.7 Troponin I 0.00 ng/mL <0.04 5 TSH (Thyroid Stim Horm) 1.11 mcIU/mL Normal 0.34-5.60 Urinalysis Profile 12/13/2018 [facility] Urine Color Colorless Urine Appearance Clear Urine Specific Cory 1.002 Low 1.010-1.030 Urine pH 8.0 Normal 5-9 Urine Urobilinogen Negative Negative Urine Ketones Negative Negative Urine Protein Negative Negative Urine Leukocytes Negative Negative Urine Blood Negative Negative Urine Nitrite Negative Negative Urine Bilirubin Negative Negative Urine Glucose Negative Negative Comprehensive Metabolic 09/22/2018 Talley Leigh(fma) Sodium 141 mEq/L 134-149 Prof Potassium [...] ml/min/1.73m^ >=60 Laboratory test finding 09/22/2018 Mayank Abraham(a) TSH 1.55 mIU/L 0.50-6.00 CBC Electronic Fma 09/22/2018 Mayank Leigh(fma) WBC 4.4 x10^3/UL 4.0- 10.0 RBC 4.26 x10^6/UL 3.93-6.00 HGB 13.3 g/dL 12.0-17.0 HCT 41 % 35-50 MCV 95.0 fL 80.0-95.0 MCH 31.2 pg 25.6-32.2 MCHC 32.8 g/dL 32.2-36.0 RDW-CV 13.2 % 11.6-14.4 PLT 220 x10^3/UL 163-400 MPV 10.5 fL 9.4-12.4 [place]# 2.79 x10^3/UL 1.56-6.13 Lymph# 1.04 x10^3/UL Low 1.18-3.74 [place]# 0.41 x10^3/UL 0.24-0.82 Eos # 0.1 x10^3/UL 0.0-0.5 Baso # 0.03 x10^3/UL 0.01-0.08 [place]% 63.8 % 34.0-70.0 Lymph % 23.8 % 20.0-52.0 [place]% 9.4 % 5.0-12.0 Eos% 2.1 % 0.7-7.0 Baso% 0.7 % 0.1-1.2 1 Troponin-I testing on Plasma Separator Tubes (PST) has a known false positive rate of 0.20-0.40%. All positive troponins reflex immediately to secondary confirmatory testing. Using the LaunchupsI 800 Access Immunoassay systems, the 99th percentile upper reference limit was demonstrated to be < 0.03 ng/mL. 2 Standard intensity warfarin therapeutic range: 2.0-3.0 High intensity warfarin therapeutic range: 2.5-3.5 3 [place] Severe Sepsis and Septic Shock Management Bundle Measure requires all lactic acids initially measuring >2.0 mmol/L be repeated. 4 Because ethnic data is not always readily [...] 15-29 5 Kidney failure <15 (or dialysis) 5 Troponin-I testing on Plasma Separator Tubes (PST) has a known false positive rate of 0.20-0.40%. All positive troponins reflex immediately to secondary confirmatory testing. Using the Tarisa 800 Access Immunoassay systems, the 99th percentile upper reference limit was demonstrated to be < 0.03 ng/mL. Procedures Date Code Description Status 09/22/2018 84773 Electrocardiogram Complete Completed 01/13/2018 13288376 Colonoscopy Completed Medical Devices Description No Information Available Encounters Type Date Location Provider Dx Diagnosis Office Visit 12/22/2018 [facility] Adelina Fonseca, F41.9 Anxiety disorder, 9:50a M.D. 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 hypertension F41.9 Anxiety disorder, unspecified K21.9 Gastro-esophageal reflux disease without esophagitis M54.6 Pain in thoracic spine Office Visit 10/08/2018 1:15p [facility] Carrie Proctor R14.0 Abdominal Bo, [employer] distension (gaseous) Office Visit 09/29/2018 10:40a [facility] Adelina Fonseca, I10 Essential M.D. (primary) hypertension F41.9 Anxiety disorder, unspecified H81.13 Benign paroxysmal vertigo, bilateral N81.89 Other female genital prolapse Office Visit 09/22/2018 1:45p [facility] Jesusita Albarado I95.1 Orthostatic SIOMARA Evans hypotension I95.1 Orthostatic hypotension I10 Essential (primary) hypertension H81.13 Benign paroxysmal vertigo, bilateral Assessments Date Code Description Provider 02/07/2019 F41.9 Anxiety disorder, unspecified Meera Camacho, Afnp-C 02/07/2019 M54.6 Pain in thoracic spine Meera CamachoJill-C 12/22/2018 F41.9 Anxiety disorder, unspecified Adelina Fonseca M.D. 12/22/2018 I10 Essential (primary) hypertension Adelina Fonseca M.D. 12/22/2018 K21.9 Gastro-esophageal reflux disease without Adelina Fonseca M.D. esophagitis 12/22/2018 Z85.520 Personal history of malignant carcinoid Adelina Fonseca M.D. tumor of kidney 12/22/2018 G47.33 Obstructive sleep apnea (adult) Adelina Fonseca M.D. (pediatric) 11/24/2018 I10 Essential (primary) hypertension Adelina Fonseca M.D. 11/24/2018 F41.9 Anxiety disorder, unspecified Adelina Fonseca M.D. 11/24/2018 K21.9 Gastro-esophageal reflux disease without Adelina Fonseca M.D. esophagitis 11/24/2018 M54.6 Pain in thoracic spine Adelina Fonseca M.D. 10/08/2018 R14.0 Abdominal distension (gaseous) Carrie Soriano, DUANE 09/29/2018 I10 Essential (primary) hypertension Adelina Fonseca M.D. 09/29/2018 F41.9 Anxiety disorder, unspecified Adelina Fonseca M.D. 09/29/2018 H81.13 Benign paroxysmal vertigo, bilateral Adelina Fonseca M.D. 09/29/2018 N81.89 Other female genital prolapse Adelina Fonseca M.D. 09/22/2018 I95.1 Orthostatic hypotension SIOMARA Ratliff 09/22/2018 I95.1 Orthostatic hypotension SIOMARA Ratliff 09/22/2018 I10 Essential (primary) hypertension SIOMARA Ratliff 09/22/2018 H81.13 Benign paroxysmal vertigo, bilateral SIOMARA Ratliff Plan of Treatment Future Appointment(s):04/05/2019 1:40 pm - Adelina Fonseca M.D. at [facility] Pcoqpw6603/22/2019 1:40 pm - Adelina Fonseca M.D. at [facility] Otyhtd8602/07/2019 - Meera Camacho, Jill-CF41.9 Anxiety disorder, pteraypjlqcX66.6 Pain in thoracic spineNew Xrays:Thoracic Spine 2 Views, Ordered: 02/07/19AllNew Medication:Hydroxyzine HCL 10 mg - 1-2 po qhs prnBuspirone HCL 15 mg - 1 po bid -Comments:Medication Management Patient Understands medications she's taking ? Yes No Are there Barriers to Adherence? Yes No anxiety , worries about med effects Has the patient been asked about herbal supplements and therapies, and OTC meds? Yes No Care Plan1. Patient has been queried about patient's goals/preferences and functional/lifestyle goals at relevant visits. If relevant, describe: na2. Treatment goals as explained to the patient: aboveanxiety management 3. Are therebarriers to meeting treatment goals? Yes No If Yes, please describe:4. Self-Management goals as described to the patient: Yes No consult with Dr Fonseca : will increase buspar try hydroxizine for sleep discussed nonpharm rx: focused breathing , out loud reading keep routine f/u as scheduled , I will let you know the results of your x-rays Functional Status Description No Information Available Mental Status Description No Information Available Referrals Refer to Reason for Referral Status Appt Date [facility] Garcia hearing evaluation for hearing Scheduled [facility] [address] [place] [address] [phone]
[2019-02-20 15:04] LABS: ABS Basophils 0.1 10^3/ul (0-0.2); ABS Lymphocytes 1.3 10^3/ul (1.0-4.8); ABS Monocytes 0.5 10^3/ul (0-0.8); ABS Neutrophils 3.8 10^3/ul (1.5-7.7); Eosinophil % 0.7 %; Hematocrit 44 % (35-47); Hemoglobin 14.8 g/dL (12.0-16.0); Lymphocyte % 23.1 %; Mean Corpuscular HGB Conc 34 g/dL (31-36); Mean Corpuscular Hemoglobin 32 pg (27-31); Mean Corpuscular Volume 95 fL (80-97); Mean Platelet Volume 8.4 fL (7.4-10.4); Nucleated Red Blood Cells % 0.1; Platelet Count 234 10^3/uL (150-450); Red Blood Count 4.58 10^6 /uL (3.70-4.87); Red Cell Distribution Width 13 % (10-15); White Blood Count 5.6 10^3/uL (3.5-10.8)
[2019-02-20 15:24] LABS: Albumin 4.4 g/dL (3.2-5.2); Albumin/Globulin Ratio 1.6 (1-3); BUN/Creatinine Ratio 16.8 (8-20); Calcium 9.3 mg/dL (8.6-10.3); EGFR African American 63.2 (>60); EGFR Non-African American 52.2 (>60); Globulin 2.7 g/dL (2-4); Potassium 4.5 mmol/L (3.5-5.0); Total Bilirubin 0.4 mg/dL (0.2-1.0); Total Protein 7.1 g/dL (6.4-8.9)
[2019-02-20] MEDS ORDERED: NS 0.9% 1000 ML** 1,000 ML IV ONE (18:16)
[2019-02-20] MEDS ORDERED: Ondansetron INJ* 2 MG/ML VIAL IV ONE (18:16)
[2019-02-20] MEDS ORDERED: Iodixanol* (CONTRAST) 320 MG/ML 100 ML SDV IV ONE (18:31)
--- NOTE | 2019-02-20 20:32 | ED ---
GI/ HPI - HPI Summary HPI Summary: 83-year-old female presents with abdominal pain for the past couple months. She states over the past couple days she is becoming more nauseous. She denies any vomiting. She also notes that her stools has been darker. No gross blood seen in the stool. Did not eat anything different. States she is having a lot of bloating and gas. Has follow-up with GI in a month. Is not on blood thinners. Has history of anxiety and high blood pressure. No urinary symptoms. No chest pain shortness breath. - History of Current Complaint Chief Complaint: EDGIBleed Time Seen by Provider: 02/20/19 18:03 Stated Complaint: NAUSEA AND BLACK STOOLS PER PT Pain Intensity: 3 - Additional Pertinent History Primary Care Physician: [id number] - Allergy/Home Medications Allergies/Adverse Reactions: Allergies Allergy/AdvReac Type Severity Reaction Status Date / Time sulfamethoxazole AdvReac Heartburn Verified 02/20/19 13:44 [From Bactrim] trimethoprim [From Bactrim] AdvReac Heartburn Verified 02/20/19 13:44 PMH/Surg Hx/FS Hx/Imm Hx Endocrine/Hematology History: Denies: Hx Anticoagulant Therapy, Hx Diabetes Cardiovascular History: Reports: Hx Hypertension - Medication Denies: Hx Pacemaker/ICD GI History: Reports: Hx Gastroesophageal Reflux Disease, Hx Ulcer - 2013- PEPTIC ULCER PIN History: Denies: Hx Renal Disease Musculoskeletal History: Reports: Hx Arthritis - HANDS, Other Musculoskeletal History - OSTEOPOROSIS IN BACK Sensory History: Reports: Hx Cataracts, Hx Contacts or Glasses, Hx Hearing Aid Opthamlomology History: Reports: Hx Cataracts, Hx Contacts or Glasses Psychiatric History: Reports: Hx Anxiety - IN 2016, Hx Depression - IN 2016- RELATED TO IN FAMILY Denies: Hx Panic Disorder - Cancer History Cancer Type, 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 LEFT ELBOW. TUBAL LIGATION. 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 CHOLECYSTECTOMY 07/11 Hx Anesthesia Reactions: No Infectious Disease History: No Infectious Disease History: Denies: History Other Infectious Disease, Traveled Outside the [place] in Last 30 Days - Family History Known Family History: Positive: None - REVIEWED & NONCONTRIBUTORY, Cardiac Disease, Hypertension Family History: Brother: CVA - Social History Alcohol Use: None Hx Substance Use: No Substance Use Type: Reports: None Hx Tobacco Use: No Smoking Status (MU): Never Smoked Tobacco Have You Smoked in the Last Year: No Review of Systems Negative: Fever Negative: Chest Pain Negative: Shortness Of Breath Positive: Abdominal Pain, Nausea. Negative: Vomiting, Diarrhea All Other Systems Reviewed And Are Negative: Yes Physical Exam Triage Information Reviewed: Yes Vital Signs On Initial Exam: Initial Vitals Temp Pulse Resp BP Pulse Ox 97.6 F 87 16 143/91 99 02/20/19 13:40 02/20/19 13:40 02/20/19 13:40 02/20/19 13:40 02/20/19 13:40 Vital Signs Reviewed: Yes Appearance: Positive: Well-Appearing Skin: Positive: Warm, Dry Head/Face: Positive: Normal Head/Face Inspection Eyes: Positive: Normal, Conjunctiva Clear ENT: Positive: Pharynx normal Respiratory/Lung Sounds: Positive: Clear to Auscultation, Breath Sounds Present Cardiovascular: Positive: Normal, RRR Abdomen Description: Positive: Soft, Other: - tenderness in RLQ Bowel Sounds: Positive: Present Musculoskeletal: Positive: Normal Neurological: Positive: Normal Psychiatric: Positive: Normal Diagnostics - Vital Signs Vital Signs Temp Pulse Resp BP Pulse Ox 02/20/19 17:49 67 155/110 99 02/20/19 17:48 64 98 02/20/19 15:32 97.9 F 81 16 113/84 95 02/20/19 13:40 97.6 F 87 16 143/91 99 - Laboratory Lab Results: Lab Results 02/20/19 02/20/19 02/20/19 Range/Units 14:57 14:57 14:57 WBC 5.6 (3.5-10.8) 10^3/uL RBC 4.58 (3.70-4.87) 10^6 /uL Hgb 14.8 (12.0-16.0) g/dL Hct 44 (35-47) % MCV 95 (80-97) fL MCH 32 H (27-31) pg MCHC 34 (31-36) g/dL RDW 13 (10-15) % Plt Count 234 (150-450) 10^3/uL MPV 8.4 (7.4-10.4) fL Neut % (Auto) 66.5 % Lymph % (Auto) 23.1 % [place] % (Auto) 8.7 % Eos % (Auto) 0.7 % Baso % (Auto) 1.0 % Absolute Neuts (auto) 3.8 (1.5-7.7) 10^3/ul Absolute Lymphs (auto) 1.3 (1.0-4.8) 10^3/ul Absolute Monos (auto) 0.5 (0-0.8) 10^3/ul Absolute Eos (auto) 0.0 (0-0.6) 10^3/ul Absolute Basos (auto) 0.1 (0-0.2) 10^3/ul Absolute Nucleated RBC 0.0 10^3/ul Nucleated RBC % 0.1 Sodium 140 (135-145) mmol/L Potassium 4.5 (3.5-5.0) mmol/L Chloride 106 (101-111) mmol/L Carbon Dioxide 28 (22-32) mmol/L Anion Gap 6 (2-11) mmol/L BUN 17 (6-24) mg/dL Creatinine 1.01 H (0.51-0.95) mg/dL Est GFR ( Amer) 63.2 (>60) Est GFR (Non-Af Amer) 52.2 (>60) BUN/Creatinine Ratio 16.8 (8-20) Glucose 83 (70-100) mg/dL Lactic Acid 0.8 (0.5-2.0) mmol/L Calcium 9.3 (8.6-10.3) mg/dL Total Bilirubin 0.40 (0.2-1.0) mg/dL AST 27 (13-39) U/L ALT 13 (7-52) U/L Alkaline Phosphatase 87 (34-104) U/L Total Protein 7.1 (6.4-8.9) g/dL Albumin 4.4 (3.2-5.2) g/dL Globulin 2.7 (2-4) g/dL Albumin/Globulin Ratio 1.6 (1-3) Lipase 45 (11.0-82.0) U/L Blood Type Antibody Screen 02/20/19 Range/Units 14:57 WBC (3.5-10.8) 10^3/uL RBC (3.70-4.87) 10^6 /uL Hgb (12.0-16.0) g/dL Hct (35-47) % MCV (80-97) fL MCH (27-31) pg MCHC (31-36) g/dL RDW (10-15) % Plt Count (150-450) 10^3/uL MPV (7.4-10.4) fL Neut % (Auto) % Lymph % (Auto) % [place] % (Auto) % Eos % (Auto) % Baso % (Auto) % Absolute Neuts (auto) (1.5-7.7) 10^3/ul Absolute Lymphs (auto) (1.0-4.8) 10^3/ul Absolute Monos (auto) (0-0.8) 10^3/ul Absolute Eos (auto) (0-0.6) 10^3/ul Absolute Basos (auto) (0-0.2) 10^3/ul Absolute Nucleated RBC 10^3/ul Nucleated RBC % Sodium (135-145) mmol/L Potassium (3.5-5.0) mmol/L Chloride (101-111) mmol/L Carbon Dioxide (22-32) mmol/L Anion Gap (2-11) mmol/L BUN (6-24) mg/dL Creatinine (0.51-0.95) mg/dL Est GFR ( Amer) (>60) Est GFR (Non-Af Amer) (>60) BUN/Creatinine Ratio (8-20) Glucose (70-100) mg/dL Lactic Acid (0.5-2.0) mmol/L Calcium (8.6-10.3) mg/dL Total Bilirubin (0.2-1.0) mg/dL AST (13-39) U/L ALT (7-52) U/L Alkaline Phosphatase (34-104) U/L Total Protein (6.4-8.9) g/dL Albumin (3.2-5.2) g/dL Globulin (2-4) g/dL Albumin/Globulin Ratio (1-3) Lipase (11.0-82.0) U/L Blood Type O Positive Antibody Screen Negative Result Diagrams: 02/20/19 14:57 02/20/19 14:57 Lab Statement: Any lab studies that have been ordered have been reviewed, and results considered in the medical decision making process. - CT abd CT Interpretation Completed By: Radiologist Summary of CT Findings: IMPRESSION: 1. There has been little change from 2015. No acute interval process is identified. 2. Status post cholecystectomy. 3. Fatty infiltration of the liver. 4. Focal parenchymal loss in the posterior left kidney with adjacent 11 mm cyst consistent with previous surgery. Re-Evaluation - Re-Evaluation First Eval Re-Evaluation Time: 20:51 Change: Improved GIGU Course/Dx - Course Course Of Treatment: 83-year-old female presents with abdominal pain for the past couple months. She states over the past couple days she is becoming more nauseous. She denies any vomiting. She also notes that her stools has been darker. No gross blood seen in the stool. Did not eat anything different. States she is having a lot of bloating and gas. Has follow-up with GI in a month. Is not on blood thinners. Has history of anxiety and high blood pressure. No urinary symptoms. No chest pain shortness breath. On exam tenderness in right lower quadrant. White blood count normal. H&H normal. Stool occult was negative. CT shows no acute findings. Will have follow-up with GI. Patient understands agrees the plan. - Diagnoses Differential Diagnoses - Female: Gastroenteritis (Viral), Urinary Tract Infection, Other - gi bleed Provider Diagnoses: Abdominal pain, Nausea Discharge ED - Sign-Out/Discharge Documenting (check all that apply): Patient Departure Patient Received Moderate/Deep Sedation with Procedure: No - Discharge Plan Condition: Good Disposition: HOME Prescriptions: Ondansetron ODT TAB* [Zofran 4 MG Odt TAB*] 4 mg PO Q6H PRN #16 tab.odt PRN Reason: Nausea Patient Education Materials: Abdominal Pain (ED) Referrals: Adelina Fonseca MD [Primary Care Provider] - Additional Instructions: Take zofran every 6 hours for nausea Take Tylenol for pain as needed every 6 hours Follow up with GI Return to ED if develop any new or worsening symptoms - Billing Disposition and Condition Condition: GOOD Disposition: Home
[2019-02-20] MEDS ORDERED: O ndansetron ODT 4MG 5TAB PRPK 4 MG PAK PO ONE (20:52)
[2019-02-20 21:13] VITALS: BP 178/80
== END 2019-02-20 21:13 | disposition home or self-care (01) ==
LOC: ED 13:37
DX: R10.9 Unspecified abdominal pain (principal); R11.0 Nausea; K76.0 Fatty (change of) liver, not elsewhere classified; N28.1 Cyst of kidney, acquired; I10 Essential (primary) hypertension; K21.9 Gastro-esophageal reflux disease without esophagitis; Z88.1 Allergy status to other antibiotic agents; Z88.2 Allergy status to sulfonamides; Z90.49 Acquired absence of other specified parts of digestive tract; Z79.899 Other long term (current) drug therapy
CPT/HCPCS: 36415; 74177; 80053; 82272; 83605; 83690; 85025; 86850; 86900; 86901; 96361; 96374; 99284; A9270-GY; J2405; Q9967